=== PATIENT | female | born 1985 | race Caucasian/White ===

== ENCOUNTER 2016-08-16 15:10 | Emergency (ER) | payer MEDICAID ==
[2016-08-16 15:27] VITALS: BP 161/72
== END 2016-08-16 16:49 | disposition left against medical advice (07) ==
LOC: ER 15:10
DX: Z53.21 Procedure and treatment not carried out due to patient leaving prior to being seen by health care provider (principal)

== ENCOUNTER 2016-08-21 08:06 | Emergency (ER) | payer MEDICAID ==
[2016-08-21 08:32] LABS: ABSOLUTE BASOPHILS # (AUTO) 0.1 10^3/uL (0.0-0.2); ABSOLUTE EOSINOPHILS # (AUTO) 0.1 10^3/uL (0.0-0.6); ABSOLUTE LYMPHOCYTES (AUTO) 1.6 10^3/uL (0.5-4.7); ABSOLUTE MONOCYTES (AUTO) 0.5 10^3/uL (0.1-1.4); ABSOLUTE NEUT (AUTO) 4.2 10^3/uL (1.7-8.2); BASOPHILS % (AUTO) 0.8 % (0-2); EOSINOPHILS % (AUTO) 2.3 % (0-6); HEMATOCRIT 42.8 % (36.0-47.0); HGB HCT DIFFERENCE -0.8; LYMPHOCYTES % (AUTO) 24.4 % (13-45); MEAN CORPUSCULAR HEMOGLOBIN 27.5 pg (27.0-33.4); MEAN CORPUSCULAR HGB CONC 32.7 g/dL (32.0-36.0); MEAN CORPUSCULAR VOLUME 84 fl (80-97); MONOCYTES % (AUTO) 7.2 % (3-13); RED BLOOD COUNT 5.09 10^6/uL (3.72-5.28); RED CELL DISTRIBUTION WIDTH 14.9 % (11.5-14.0); SEGMENTED NEUTROPHILS % (AUTO) 65.3 % (42-78); WHITE BLOOD COUNT 6.4 10^3/uL (4.0-10.5)
[2016-08-21 08:46] LABS: ALANINE AMINOTRANSFERASE 27 U/L (9-52); ALBUMIN 4.7 g/dL (3.5-5.0); ALKALINE PHOSPHATASE 64 U/L (38-126); ANION GAP 13 (5-19); ASPARTATE AMINO TRANSFERASE 22 U/L (14-36); BILIRUBIN,DIRECT 0.2 mg/dL (0.0-0.4); BILIRUBIN,TOTAL 0.8 mg/dL (0.2-1.3); BLOOD UREA NITROGEN 13 mg/dL (7-20); CALCIUM 9.3 mg/dL (8.4-10.2); CARBON DIOXIDE 24 mmol/L (22-30); CHLORIDE 105 mmol/L (98-107); CREATININE RESULT 0.76 mg/dL (0.52-1.25); GLUCOSE 90 mg/dL (75-110); LIPASE 103.4 U/L (23-300); POTASSIUM 4.6 mmol/L (3.6-5.0); SODIUM 142.3 mmol/L (137-145); TOTAL PROTEIN 8.2 g/dL (6.3-8.2)
[2016-08-21 08:54] LABS: APPEARANCE,URINE SLIGHTLY-CLOUDY; BILIRUBIN,URINE NEGATIVE (NEGATIVE); GLUCOSE, URINE NEGATIVE (NEGATIVE); KETONES,URINE NEGATIVE (NEGATIVE); LEUKOCYTE ESTERASE,URINE NEGATIVE (NEGATIVE); NITRITE,URINE NEGATIVE (NEGATIVE); PROTEIN,URINE NEGATIVE (NEGATIVE); URINE SPECIFIC GRAVITY 1.019; UROBILINOGEN,URINE NEGATIVE mg/dL (<2.0)
[2016-08-21] MEDS ORDERED: DICYCLOMINE HCL INJ 20 MG/2 ML AMPULE IM ONE (09:16)
--- NOTE | 2016-08-21 09:55 | ER Document Report ---
ED General - General Chief Complaint: Abdominal Pain Stated Complaint: ABDOMINAL PAIN/POSSIBLE BLOOD IN STOOL Time Seen by Provider: 08/21/16 08:29 Mode of Arrival: Ambulatory Information source: Patient Notes: 30-year-old female family history of ulcerative colitis or Crohn's disease presents with complaints of abdominal cramping with bright red blood. Patient denies any fevers or chills, she had pain for 1 week had checked in but left without being seen initially. Patient notes fevers have since resolved. Patient has had one similar episode in the past where it was just blood approximately 2 years ago TRAVEL OUTSIDE OF THE [place] IN LAST 30 DAYS: No - HPI Onset: Last week Onset/Duration: Intermittent, Persistent Quality of pain: Cramping Severity: Mild Pain Level: 1 Associated symptoms: Other Exacerbated by: Denies Relieved by: Denies Similar symptoms previously: Yes Recently seen / treated by doctor: Yes - Related Data Allergies/Adverse Reactions: amoxicillin trihydrate [From Augmentin] Allergy (Severe, Verified 08/21/16 08:12 ) itch,swell,vomit potassium clavulanate [From Augmentin] Allergy (Severe, Verified 08/21/16 08:12) itch,swell,vomit cillins Allergy (Uncoded 08/21/16 08:12) hives/rash Past Medical History - Social History Smoking Status: Current Every Day Smoker Cigarette use (# per day): Yes Chew tobacco use (# tins/day): No Smoking Education Provided: No Frequency of alcohol use: None Drug Abuse: None Family History: Reviewed & Not Pertinent Patient has suicidal ideation: No Patient has homicidal ideation: No - Past Medical History Cardiac Medical History: Reports: Hx Hypertension - on occas/no meds Denies: Hx Coronary Artery Disease, Hx Heart Attack Pulmonary Medical History: Reports: Hx Pneumonia Denies: Hx Asthma, Hx Bronchitis, Hx COPD Neurological Medical History: Denies: Hx Cerebrovascular Accident, Hx Seizures Renal/ Medical History: Denies: Hx Peritoneal Dialysis Musculoskeltal Medical History: Denies Hx Arthritis Psychiatric Medical History: Reports: Hx Attention Deficit Hyperactivity Disorder Past Surgical History: Reports: Hx Section - x4, Hx Cholecystectomy, Hx Tubal Ligation - Immunizations Immunizations up to date: Yes Hx Diphtheria, Pertussis, Tetanus Vaccination: Yes Review of Systems - Review of Systems Notes: REVIEW OF SYSTEMS: CONSTITUTIONAL : Denies fever, chills, or sweats. Denies recent illness. EENT: Denies eye, ear, throat, or mouth pain or symptoms. Denies nasal or sinus congestion or discharge. Denies throat, tongue, or mouth swelling or difficulty swallowing. CARDIOVASCULAR: Denies chest pain. Denies palpitations or racing or irregular heart beat. Denies ankle edema. RESPIRATORY: Denies cough, cold, or chest congestion. Denies shortness of breath, difficulty breathing, or wheezing. GASTROINTESTINAL: admits to abd pain rectal bleeding GENITOURINARY: Denies difficulty urinating, painful urination, burning, frequency, blood in urine, or discharge. FEMALE GENITOURINARY: Denies vaginal bleeding, heavy or abnormal periods, irregular periods. Denies vaginal discharge or odor. MUSCULOSKELETAL: Denies back or neck pain or stiffness. Denies joint pain or swelling. SKIN: Denies rash, lesions or sores. HEMATOLOGIC : Denies easy bruising or bleeding. LYMPHATIC: Denies swollen, enlarged glands. NEUROLOGICAL: Denies confusion or altered mental status. Denies passing out or loss of consciousness. Denies dizziness or lightheadedness. Denies headache. Denies weakness or paralysis or loss of use of either side. Denies problems with gait or speech. Denies sensory loss, numbness, or tingling. Denies seizures. PSYCHIATRIC: Denies anxiety or stress. Denies depression, suicidal ideation, or homicidal ideation. ALL OTHER SYSTEMS REVIEWED AND NEGATIVE. PHYSICAL EXAMINATION: GENERAL: Well-appearing, well-nourished and in no acute distress. HEAD: Atraumatic, normocephalic. EYES: Pupils equal round and reactive to light, extraocular movements intact, conjunctiva are normal. ENT: Nares patent, oropharynx clear without exudates. Moist mucous membranes. NECK: Normal range of motion, supple without lymphadenopathy LUNGS: Breath sounds clear to auscultation bilaterally and equal. No wheezes rales or rhonchi. HEART: Regular rate and rhythm without murmurs ABDOMEN: Soft, nontender, nondistended abdomen. No guarding, no rebound. No masses appreciated. Female : deferred Musculoskeletal: Normal range of motion, no pitting or edema. No cyanosis. NEUROLOGICAL: Cranial nerves grossly intact. Normal speech, normal gait. Normal sensory, motor exams PSYCH: Normal mood, normal affect. SKIN: Warm, Dry, normal turgor, no rashes or lesions noted. Dictation was performed using [employer] voice recognition software Physical Exam - Vital signs Vitals: Temp Pulse Resp BP Pulse Ox 98.4 F 96 14 144/79 H 99 08/21/16 08:12 08/21/16 08:12 08/21/16 08:12 08/21/16 08:12 08/21/16 08:12 Course - Re-evaluation Re-evalutation: 08/21/16 09:54 Rectal examination was performed with primary nurse in the room, Hemoccult was negative. Patient otherwise looks quite benign, vital signs are stable lab work is normal. She will be given GI follow-up to rule out ulcerative colitis/ Crohn's disease given the extensive family history After performing a Medical Screening Examination, I estimate there is LOW risk for ACUTE APPENDICITIS, BOWEL OBSTRUCTION, ACUTE CHOLECYSTITIS, PERFORATED DIVERTICULITIS, INCARCERATED HERNIA, PANCREATITIS, PELVIC INFLAMMATORY DISEASE, PERFORATED ULCER, ECTOPIC , or TUBO-OVARIAN ABSCESS, thus I consider the discharge disposition reasonable. Also, there is no evidence or peritonitis , sepsis, or toxicity. I have reevaluated this patient multiple times and no significant life threatening changes are noted. The patient and I have discussed the diagnosis and risks, and we agree with discharging home with close follow-up with the understanding that symptoms and presentations can change. We also discussed returning to the Emergency Department immediately if new or worsening symptoms occur. We have discussed the symptoms which are most concerning (e.g., bloody stool, fever, changing or worsening pain, vomiting) that necessitate immediate return. - Vital Signs Vital signs: Temp Pulse Resp BP Pulse Ox 98.4 F 96 14 144/79 H 99 08/21/16 08:12 08/21/16 08:12 08/21/16 08:12 08/21/16 08:12 08/21/16 08:12 - Laboratory Result Diagrams: 08/21/16 08:19 08/21/16 08:19 Laboratory results interpreted by me: 08/21/16 08:19 RDW 14.9 H Discharge - Discharge Clinical Impression: Rectal bleeding Abdominal pain Qualifiers: Abdominal location: generalized Qualified Code(s): R10.84 - Generalized abdominal pain Condition: Stable Disposition: HOME, SELF-CARE Instructions: Abdominal Pain ([facility]), Rectal Bleeding, Unclear Cause ([facility]) Prescriptions: Dicyclomine HCl [Bentyl 20 mg Tablet] 20 mg PO QID #40 tablet Referrals: TRISH ANTHONY MD [ACTIVE STAFF] - Follow up tomorrow SIMRAN WADE MD [ACTIVE STAFF] - Follow up tomorrow
[2016-08-21 10:06] VITALS: BP 138/78
== END 2016-08-21 10:00 | disposition home or self-care (01) ==
LOC: ER 08:06
DX: R10.84 Generalized abdominal pain (principal); K62.5 Hemorrhage of anus and rectum; I10 Essential (primary) hypertension; F17.210 Nicotine dependence, cigarettes, uncomplicated; Z83.79 Family history of other diseases of the digestive system; Z88.0 Allergy status to penicillin; Z90.49 Acquired absence of other specified parts of digestive tract
CPT/HCPCS: 99284; 36415; 83690; 85025; 82272; 81025; 80053; 81001; J0500

== ENCOUNTER 2016-10-01 10:14 | Emergency (ER) | payer MEDICAID ==
[2016-10-01] MEDS ORDERED: KETOROLAC TROMETHAMINE 60 MG/2 ML SDV IM ONE (10:56)
--- NOTE | 2016-10-01 11:02 | ER Document Report ---
HPI - HPI Patient complains to provider of: Left ear pain Onset: Other Onset/Duration: Gradual Quality of pain: Throbbing Severity: Moderate Pain Level: 3 Context: Patient states her left ear has been bothering her for several days, and is worse since last night. Denies fever, cold symptoms. Associated Symptoms: Earache Exacerbated by: Other - Opening and closing mouth Relieved by: Denies Similar symptoms previously: Yes Recently seen / treated by doctor: No - ROS ROS below otherwise negative: Yes Systems Reviewed and Negative: Yes All other systems reviewed and negative - CONSTITUTIONAL Constitutional: DENIES: Fever - EENT EENT: REPORTS: Ear Pain - left. DENIES: Sore Throat, Congestion - NEURO Neurology: DENIES: Headache - CARDIOVASCULAR Cardiovascular: DENIES: Chest pain - RESPIRATORY Respiratory: DENIES: Trouble Breathing - GASTROINTESTINAL Gastrointestinal: DENIES: Abdominal Pain - URINARY Urinary: DENIES: Dysuria - REPRODUCTIVE Reproductive: DENIES: : - MUSCULOSKELETAL Musculoskeletal: DENIES: Extremity pain - DERM Skin Color: Normal Past Medical History - General Information source: Patient - Social History Smoking Status: Current Every Day Smoker Cigarette use (# per day): Yes Frequency of alcohol use: None Drug Abuse: None Lives with: Family Family History: Reviewed & Not Pertinent - Past Medical History Cardiac Medical History: Reports: Hx Hypertension - on occas/no meds Pulmonary Medical History: Reports: Hx Pneumonia Psychiatric Medical History: Reports: Hx Attention Deficit Hyperactivity Disorder Past Surgical History: Reports: Hx Abdominal Surgery, Hx Breast Surgery, Hx Section - x4, Hx Cholecystectomy, Hx Tubal Ligation - Immunizations Immunizations up to date: Yes Hx Diphtheria, Pertussis, Tetanus Vaccination: Yes Vertical Provider Document - CONSTITUTIONAL Agree With Documented VS: Yes Exam Limitations: No Limitations General Appearance: WD/WN, Mild Distress - pt tearful - INFECTION CONTROL TRAVEL OUTSIDE OF THE [place] IN LAST 30 DAYS: No - HEENT HEENT: Atraumatic, Normocephalic Notes: Left canal red with mild edema. Pain with movement of left auricle. Left TM red and bulging. No mastoid tenderness. Patient able to fully open mouth without difficulty. Nose, throat, and right ear all normal. - NECK Neck: Normal Inspection, Supple - RESPIRATORY Respiratory: Breath Sounds Normal, No Respiratory Distress O2 Sat by Pulse Oximetry: 100 - CARDIOVASCULAR Cardiovascular: Regular Rate, Regular Rhythm - MUSCULOSKELETAL/EXTREMETIES Musculoskeletal/Extremeties: MAEW - NEURO Level of Consciousness: Awake, Alert, Appropriate - DERM Integumentary: Warm, Dry, No Rash Course - Vital Signs Vital signs: Temp Pulse Resp BP Pulse Ox 98.3 F 101 H 16 142/99 H 100 10/01/16 10:17 10/01/16 10:17 10/01/16 10:17 10/01/16 10:17 10/01/16 10:17 Discharge - Discharge Clinical Impression: Left acute suppurative otitis media Left otitis externa Qualifiers: Otitis externa type: unspecified type Chronicity: acute Qualified Code(s): H60.502 - Unspecified acute noninfective otitis externa, left ear Condition: Good Disposition: HOME, SELF-CARE Instructions: Use of Ear Drops ([facility]), Oral Narcotic Medication ([facility]), Otitis Externa ([facility]) Additional Instructions: finish all antibiotics tylenol or ibuprofen as needed for pain 4 drops to left ear every 12 hrs x 7 days follow up with your doctor next week for recheck return as needed. Prescriptions: Cefdinir [Omnicef 300 mg Capsule] 1 cap PO BID #20 capsule Ciprofloxacin HCl/Dexameth [Ciprodex Otic Suspension 7.5 ml Bottle] 4 drop OS BID #1 bottle Ibuprofen 800 mg PO PRN PRN #30 tablet PRN Reason:
[2016-10-01 11:56] VITALS: BP 141/90
== END 2016-10-01 12:00 | disposition home or self-care (01) ==
LOC: ER 10:14
DX: H66.002 Acute suppurative otitis media without spontaneous rupture of ear drum, left ear (principal); H60.502 Unspecified acute noninfective otitis externa, left ear; H92.02 Otalgia, left ear; F17.210 Nicotine dependence, cigarettes, uncomplicated
CPT/HCPCS: 99282; 96372; J1885

== ENCOUNTER 2017-04-05 07:51 | Emergency (ER) | payer MEDICAID ==
[2017-04-05 07:59] VITALS: BP 146/87
[2017-04-05] MEDS ORDERED: HYDROXYZINE PAMOATE 50 MG CAPSULE PO ONE (08:22)
[2017-04-05] MEDS ORDERED: PREDNISONE 20 MG TABLET PO ONE (08:22)
[2017-04-05] MEDS ORDERED: FAMOTIDINE 20 MG TABLET PO ONE (08:22)
--- NOTE | 2017-04-05 08:28 | ER Document Report ---
ED Skin Rash/Insect Bite/Abscs - General Chief Complaint: Rash Stated Complaint: POSSIBLE ALLERGIC REACTION Time Seen by Provider: 04/05/17 08:13 Notes: 31-year-old female patient to the emergency department chief complaint of rash and itching. Patient states that she had the flu last week. Her doctor started her on doxycycline as well because he was concerned about a pneumonia that could develop. Patient completed therapy of doxycycline approximately 3 days ago. Yesterday developed a rash. Itching to the face arms chest back legs. Of note, patient states that she was in the hospital for 18 days in the past due to allergic reaction which developed into significant hives. Biopsies were performed at that time while she was in the ICU which were nondiagnostic. Patient has numerous medication allergies. Denies any difficulty swallowing. No difficulty breathing. No swelling of the lips or tongue. No fever, chills or sweats. TRAVEL OUTSIDE OF THE [place] IN LAST 30 DAYS: No - HPI Patient complains to provider of: Skin rash/lesion Onset: Yesterday Onset/Duration: Gradual Quality of pain: Burning Severity: Moderate Pain Level: 0 Skin Character: Erythema, Rash, Swelling, Urticarial Skin Temperature: Warm Quality of rash: Itchy, Burning Medication exposure: Other - Doxycycline - Related Data Allergies/Adverse Reactions: amoxicillin trihydrate [From Augmentin] Allergy (Severe, Verified 04/05/17 07:56 ) itch,swell,vomit potassium clavulanate [From Augmentin] Allergy (Severe, Verified 04/05/17 07:56) itch,swell,vomit cillins Allergy (Uncoded 04/05/17 07:56) hives/rash Past Medical History - General Information source: Patient - Social History Smoking Status: Current Every Day Smoker Cigarette use (# per day): Yes Smoking Education Provided: No Frequency of alcohol use: None Drug Abuse: None Lives with: Family Family History: Reviewed & Not Pertinent - Past Medical History Cardiac Medical History: Reports: Hx Hypertension - on occas/no meds Pulmonary Medical History: Reports: Hx Pneumonia Renal/ Medical History: Denies: Hx Peritoneal Dialysis Psychiatric Medical History: Reports: Hx Attention Deficit Hyperactivity Disorder Past Surgical History: Reports: Hx Abdominal Surgery, Hx Breast Surgery, Hx Section - x4, Hx Cholecystectomy, Hx Tubal Ligation - Immunizations Immunizations up to date: Yes Hx Diphtheria, Pertussis, Tetanus Vaccination: Yes Review of Systems - Review of Systems Constitutional: denies: Fever, Malaise, Weakness EENT: denies: Eye pain, Eye discharge, Double vision, Ear pain, Nose congestion , Nose discharge, Difficulty swallowing, Mouth pain, Mouth swelling Cardiovascular: denies: Chest pain, Palpitations, Heart racing Respiratory: denies: Cough, Hurts to breathe, Hemoptysis, Short of breath Gastrointestinal: denies: Abdominal pain, Diarrhea, Nausea Genitourinary: denies: Dysuria, Discharge, Hematuria Female Genitourinary: denies: , Vaginal discharge, Vaginal bleeding Musculoskeletal: denies: Back pain, Gout, Joint pain, Muscle pain, Muscle stiffness, Neck pain, Deformity Skin: See HPI, Change in color, Rash Neurological/Psychological: denies: Confusion, Weakness, Seizure, Numbness Physical Exam - Vital signs Vitals: Temp Pulse Resp BP Pulse Ox 97.8 F 104 H 16 146/87 H 99 04/05/17 07:55 04/05/17 07:55 04/05/17 07:55 04/05/17 07:55 04/05/17 07:55 Interpretation: Tachycardic. No: Tachypneic, Febrile - HEENT Head: Normocephalic Eyes: Normal Conjunctiva: Normal Cornea: Normal Ears: Normal Mouth/Lips: Normal, Other - Tongue is normal Mucous membranes: Normal Pharynx: Normal Neck: Normal - Respiratory Respiratory status: No respiratory distress Chest status: Nontender Breath sounds: Normal Chest palpation: Normal - Cardiovascular Rhythm: Tachycardia Heart sounds: Normal auscultation Murmur: No - Abdominal Inspection: Normal Distension: No distension Bowel sounds: Normal Tenderness: Nontender Organomegaly: No organomegaly - Extremities General upper extremity: Normal inspection, Nontender, Normal color, Normal ROM , Normal temperature General lower extremity: Normal inspection, Nontender, Normal color, Normal ROM , Normal temperature, Normal weight bearing. No: Ricardo's sign - Skin Skin Temperature: Warm Skin Moisture: Dry Skin Color: Other - Patient has urticarial hives on the inner aspect of her right humerus. Has read itchy rash on face and bilateral ears, bilateral arms Course - Re-evaluation Re-evalutation: 04/05/17 08:26 She is experiencing urticarial hives and itching. Will give prednisone, Pepcid , Vistaril at this time. Could be a delayed hypersensitivity reaction from the doxycycline. I have advised her against taking that again. Will continue with prednisone for the approximately 5 days as well as Vistaril and Pepcid twice a day. Patient advised to return if develop any worsening symptoms. Warning signs were given with regards to King-Jimmy syndrome as well as toxic epidermal necrolysis. Patient verbalized understanding of instructions. Will DC after medications given. - Vital Signs Vital signs: Temp Pulse Resp BP Pulse Ox 97.8 F 104 H 16 146/87 H 99 04/05/17 07:55 04/05/17 07:55 04/05/17 07:55 04/05/17 07:55 04/05/17 07:55 Discharge - Discharge Clinical Impression: Urticarial rash Allergic reaction caused by a drug Qualifiers: Encounter type: initial encounter Qualified Code(s): T78.40XA - Allergy, unspecified, initial encounter Condition: Good Disposition: HOME, SELF-CARE Instructions: Acute Urticaria ([facility]), Acute Allergic Reaction ([facility]) Prescriptions: Famotidine [Pepcid 20 mg Tablet] 20 mg PO BID 5 Days #10 tablet Hydroxyzine Pamoate [Vistaril 25 mg Capsule] 25 mg PO TID PRN 7 Days #21 capsule PRN Reason: Itching Prednisone [Deltasone 20 mg Tablet] 3 tab PO DAILY 5 Days tablet
== END 2017-04-05 08:42 | disposition home or self-care (01) ==
LOC: ER 07:51
DX: T78.40XA Allergy, unspecified, initial encounter (principal); L50.9 Urticaria, unspecified; R21 Rash and other nonspecific skin eruption; F17.210 Nicotine dependence, cigarettes, uncomplicated; X58.XXXA Exposure to other specified factors, initial encounter
CPT/HCPCS: 99282; J7512

== ENCOUNTER 2017-05-10 09:37 | Emergency (ER) | payer MEDICAID ==
--- NOTE | 2017-05-10 10:44 | RADIOLOGY REPORT (SQ) ---
EXAM DESCRIPTION: FOOT RIGHT COMPLETE COMPLETED DATE/TIME: 05/10/2017 10:27 am REASON FOR STUDY: stepped on a glass COMPARISON: None. NUMBER OF VIEWS: Three views. TECHNIQUE: AP, lateral and oblique radiographic images acquired of the right foot. LIMITATIONS: None. FINDINGS: MINERALIZATION: Normal. BONES: No acute fracture or dislocation. No worrisome bone lesions. JOINTS: No effusions. SOFT TISSUES: No soft tissue swelling. No foreign body. OTHER: Tiny heel spur IMPRESSION: No radiopaque foreign body. Glass may not be radiopaque. No acute bony changes. Tiny heel spur. TECHNICAL DOCUMENTATION: JOB ID: [id number] [employer]- All Rights Reserved Reading location - IP/workstation name: [email or web address]
[2017-05-10] MEDS ORDERED: IBUPROFEN 600 MG TABLET PO ONE (10:45)
[2017-05-10] MEDS ORDERED: LIDOCAINE 1% INJ-PF (10 MG/ML) 30 ML SDV INJ ONE (10:45)
--- NOTE | 2017-05-10 10:49 | ER Document Report ---
ED Extremity Problem, Lower - General Chief Complaint: Foot Injury Stated Complaint: FOOT INJURY Time Seen by Provider: 05/10/17 10:23 Mode of Arrival: Ambulatory Information source: Patient TRAVEL OUTSIDE OF THE [place] IN LAST 30 DAYS: No - HPI Patient complains to provider of: Injury Location: Foot Occurred: This morning Notes: Patient is here with complaints of right heel pain. She states that she had a bunch of glasses in a bag that was covered by a shirt on the floor. He got up this morning and externally stepped on the bag and a glass broke and a piece of glass went into her right heel. She was able to pull the chunk of glass out of her heel, and believes that the glass was intact. She has pain in the heel at this point. She denies any numbness, tingling, weakness. Bleeding is controlled. Last tetanus was over 2 years ago. She denies any nausea, vomiting , diarrhea. No other injuries at this time. No other complaints at this time. Pain is worse with touching the area and standing, better when she is off the foot. - Related Data Allergies/Adverse Reactions: amoxicillin trihydrate [From Augmentin] Allergy (Severe, Verified 04/05/17 07:56 ) itch,swell,vomit potassium clavulanate [From Augmentin] Allergy (Severe, Verified 04/05/17 07:56) itch,swell,vomit cillins Allergy (Uncoded 04/05/17 07:56) hives/rash Past Medical History - Social History Smoking Status: Current Every Day Smoker Chew tobacco use (# tins/day): No Frequency of alcohol use: None Drug Abuse: None Family History: Reviewed & Not Pertinent Patient has suicidal ideation: No Patient has homicidal ideation: No - Past Medical History Cardiac Medical History: Reports: Hx Hypertension - on occas/no meds Pulmonary Medical History: Reports: Hx Pneumonia Renal/ Medical History: Denies: Hx Peritoneal Dialysis Psychiatric Medical History: Reports: Hx Attention Deficit Hyperactivity Disorder Past Surgical History: Reports: Hx Abdominal Surgery, Hx Breast Surgery, Hx Section - x4, Hx Cholecystectomy, Hx Tubal Ligation - Immunizations Immunizations up to date: Yes Hx Diphtheria, Pertussis, Tetanus Vaccination: Yes Review of Systems - Review of Systems -: Yes All other systems reviewed and negative Physical Exam - Vital signs Vitals: Temp Pulse Resp BP Pulse Ox 98.2 F 88 18 141/86 H 99 05/10/17 09:45 05/10/17 09:45 05/10/17 09:45 05/10/17 09:45 05/10/17 09:45 - Notes Notes: GENERAL: alert, cooperative, nontoxic, no distress. HEAD: normocephalic, atraumatic EYES: conjunctiva pink without discharge, no external redness or swelling. EARS: no external swelling, no external redness NOSE: atraumatic, no external swelling MOUTH/THROAT: mucous membranes moist and pink NECK: soft, supple, full range of motion, no meningismus. CHEST: no distress, lungs clear and equal throughout. No wheezing, rales, rhonchi. CARDIAC: regular rate and rhythm, no murmur, normal capillary refill, normal pulses. BACK: full range of motion, no CVA tenderness. EXTREMITIES: full range of motion of all extremities. No redness, no swelling. 2 cm V-shaped laceration to the right heel. No active bleeding. Mild tenderness to palpation. No foreign body identified. Normal cap refill and sensation to the toes. NEURO: alert and oriented 3, no focal deficits, full range of motion of all extremities. PYSCH: appropriate mood, affect. Patient is cooperative. SKIN: pink, warm, dry, no rash. Course - Re-evaluation Re-evalutation: 05/10/17 11:36 Patient is nontoxic appearing with stable vitals. The patient is here with complaints of right foot laceration when she externally stepped on broken glass. She states there was a chunk of glass in her foot that she was able to pull out. Her tetanus is up-to-date. X-ray shows no fractures or obvious foreign bodies. I explained to the patient that glass does not always show up on x-ray and there is still the possibility that she could have a small piece of glass in her foot. The wound was probed with forceps and I did not feel any foreign bodies and I did not see any foreign bodies on exam. Laceration was copiously irrigated and cleaned and sutured. She will be discharged home with a prescription for Voltaren. Follow-up in 10-12 days for suture removal. Follow-up sooner for increasing pain, fever, redness, drainage, any further concerns. The patient's emergency department workup and current diagnosis were explained to the patient and or family. Follow-up instructions were provided. Medications if prescribed were discussed. Instructions for when to return to the emergency department including specific worrisome symptoms were discussed with the patient and/or family. The patient is noted to have elevated blood pressure during today's emergency department visit. The patient was informed of this finding. The patient was instructed that this may be related to pre-hypertension and requires further evaluation with a primary care provider. The patient has no hypertensive symptoms at this time. - Vital Signs Vital signs: Temp Pulse Resp BP Pulse Ox 98.2 F 88 18 141/86 H 99 05/10/17 09:45 05/10/17 09:45 05/10/17 09:45 05/10/17 09:45 05/10/17 09:45 - Diagnostic Test Radiology reviewed: Image reviewed, Reports reviewed - X-ray negative for fracture or obvious foreign body. Procedures - Laceration/Wound Repair Right heel Wound length (cm): 2 Wound's Depth, Shape: Superficial, Other - V-shaped Laceration pre-procedure: Sterile PPE donned, Sterile drapes applied, Shur- Clens applied Anesthetic type: 1% Lidocaine Wound explored: Clean, No foreign body removed Irrigated w/ Saline (mLs): 50 Wound Debrided: Minimal Wound Repaired With: Sutures Suture Size/Type: 4:0, Ethilon Number of Sutures: 3 Layer Closure?: No Post-procedure wound care: Sterile dressing applied Post-procedure NV exam normal: Yes Complications: No Discharge - Discharge Clinical Impression: Laceration of right foot Qualifiers: Encounter type: initial encounter Qualified Code(s): S91.311A - Laceration without foreign body, right foot, initial encounter Condition: Stable Disposition: HOME, SELF-CARE Instructions: Antibiotic Ointment Protection ([facility]), Laceration Care ([facility]) Additional Instructions: Clean wound twice a day with soap and water. Follow-up with your doctor in 10- 12 days for suture removal. Follow-up sooner for increasing pain, fever, redness, drainage, any further concerns. Your blood pressure was elevated during today's visit. Have this rechecked with your doctor. Prescriptions: Diclofenac Sodium [Voltaren 50 Mg Tablet.] 50 mg PO BID #20 tablet. Forms: Elevated Blood Pressure, Smoking Cessation Education, Return to Work Referrals: [facility] [Provider Group] - Follow up as needed
[2017-05-10 11:45] VITALS: BP 120/85
== END 2017-05-10 11:49 | disposition home or self-care (01) ==
LOC: ER 09:37
DX: S91.311A Laceration without foreign body, right foot, initial encounter (principal); W25.XXXA Contact with sharp glass, initial encounter; I10 Essential (primary) hypertension; Z88.0 Allergy status to penicillin
CPT/HCPCS: 99283; 73630; 12001; J3490 ×2

== ENCOUNTER 2017-07-22 09:06 | Emergency (ER) | payer MEDICAID ==
[2017-07-22] MEDS ORDERED: DEXAMETHASONE SOD PHOS INJ 10 MG/1 ML VIAL IM ONE (09:30)
[2017-07-22] MEDS ORDERED: KETOROLAC TROMETHAMINE 60 MG/2 ML SDV IM ONE (09:30)
--- NOTE | 2017-07-22 09:34 | ER Document Report ---
ED Extremity Problem, Upper - General Chief Complaint: Arm Pain Stated Complaint: RIGHT ELBOW PAIN Time Seen by Provider: 07/22/17 09:21 Mode of Arrival: Ambulatory Information source: Patient Notes: 31-year-old female presents to ED for complaint of right elbow pain times a month and half. She states she was helping someone lift tires and twins at the time the next day it was worse and it is progressively gotten worse until over the last couple days she can barely lift and move her elbow. 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 TRAVEL OUTSIDE OF THE [place] IN LAST 30 DAYS: No - HPI Patient complains to provider of: Right, Elbow Onset: Other - 1-1/2 months Recent injury: No Quality of pain: Sharp Severity of pain: Moderate Pain Level: 3 Context: Other - Lifting tires Associated symptoms: None Exacerbated by: Movement, Exertion Relieved by: Nothing Similar symptoms previously: Yes Recently seen / treated by doctor: No - Related Data Allergies/Adverse Reactions: amoxicillin trihydrate [From Augmentin] Allergy (Severe, Verified 07/22/17 09:07 ) itch,swell,vomit potassium clavulanate [From Augmentin] Allergy (Severe, Verified 07/22/17 09:07) itch,swell,vomit cillins Allergy (Uncoded 05/10/17 11:50) hives/rash Past Medical History - General Information source: Patient - Social History Smoking Status: Former Smoker Cigarette use (# per day): No Chew tobacco use (# tins/day): No Smoking Education Provided: No Frequency of alcohol use: None Drug Abuse: None Lives with: Spouse/Significant other Family History: Reviewed & Not Pertinent Patient has suicidal ideation: No Patient has homicidal ideation: No - Past Medical History Cardiac Medical History: Reports: Hx Hypertension - on occas/no meds Pulmonary Medical History: Reports: Hx Pneumonia EENT Medical History: Reports: None Neurological Medical History: Reports: None Endocrine Medical History: Reports: None Renal/ Medical History: Reports: Hx Ovarian Cysts Malignancy Medical History: Reports: None GI Medical History: Reports: None Musculoskeltal Medical History: Reports Hx Musculoskeletal Deformity, Reports Hx Musculoskeletal Trauma Skin Medical History: Reports None Psychiatric Medical History: Reports: Hx Anxiety, Hx Attention Deficit Hyperactivity Disorder Traumatic Medical History: Reports: Hx Fractures - Tib-fib, bilateral scaphoid Surgical Hx: Negative Past Surgical History: Reports: Hx Abdominal Surgery - Tummy tuck, Hx Breast Surgery - Augmentation, Hx Section - x4, Hx Cholecystectomy, Hx Myringotomy, Hx Tubal Ligation - Immunizations Immunizations up to date: Yes Hx Diphtheria, Pertussis, Tetanus Vaccination: Yes Review of Systems - Review of Systems Constitutional: No symptoms reported EENT: No symptoms reported Cardiovascular: No symptoms reported Respiratory: No symptoms reported Gastrointestinal: No symptoms reported Genitourinary: No symptoms reported Female Genitourinary: No symptoms reported Musculoskeletal: Other - Right elbow pain Skin: No symptoms reported Hematologic/Lymphatic: No symptoms reported Neurological/Psychological: No symptoms reported -: Yes All other systems reviewed and negative Physical Exam - Vital signs Vitals: Temp Pulse Resp BP Pulse Ox 98.6 F 80 16 139/84 H 99 07/22/17 09:14 07/22/17 09:14 07/22/17 09:14 07/22/17 09:14 07/22/17 09:14 Interpretation: Normal - General General appearance: Appears well, Alert - HEENT Head: Normocephalic, Atraumatic Eyes: Normal Pupils: PERRL - Respiratory Respiratory status: No respiratory distress Chest status: Nontender Breath sounds: Normal Chest palpation: Normal - Cardiovascular Rhythm: Regular Heart sounds: Normal auscultation Murmur: No - Abdominal Inspection: Normal Distension: No distension Bowel sounds: Normal Tenderness: Nontender Organomegaly: No organomegaly - Back Back: Normal, Nontender - Extremities General upper extremity: Normal inspection, Normal color, Normal temperature General lower extremity: Normal inspection, Nontender, Normal color, Normal ROM , Normal temperature, Normal weight bearing. No: Ricardo's sign Elbow: Limited ROM - Due to pain - Neurological Neuro grossly intact: Yes Cognition: Normal Orientation: AAOx4 Ok Coma Scale Eye Opening: Spontaneous Ok Coma Scale Verbal: Oriented [place] Coma Scale Motor: Obeys Commands [place] Coma Scale Total: 15 Speech: Normal Motor strength normal: LUE, RUE, LLE, RLE Sensory: Normal - Psychological Associated symptoms: Normal affect, Normal mood - Skin Skin Temperature: Warm Skin Moisture: Dry Skin Color: Normal Course - Vital Signs Vital signs: Temp Pulse Resp BP Pulse Ox 98.2 F 87 18 140/90 H 99 07/22/17 10:24 07/22/17 10:24 07/22/17 10:24 07/22/17 10:24 07/22/17 10:24 - Diagnostic Test Radiology reviewed: Image reviewed, Reports reviewed Discharge - Discharge Clinical Impression: Right elbow pain HTN (hypertension) Qualifiers: Hypertension type: unspecified Qualified Code(s): I10 - Essential (primary) hypertension Condition: Stable Disposition: HOME, SELF-CARE Instructions: Forearm Exercise Program ([facility]) Additional Instructions: Arthralgia Arthralgia is pain in the joints. We use the word arthralgia to describe joint pain where there's no history of injury, no known joint disease, and the joints are normal to examination. Arthralgia can be a symptom of an acute illness, such as influenza, hepatitis, or serum sickness. Sometimes the joint pain comes before any other symptoms. Arthralgia can also be an early symptom of joint disease, such as rheumatoid arthritis or lupus. If arthralgia is accompanied by an acute illness that explains the joint pain, such as mononucleosis, no further testing needs to be done. When there's no clear reason for the pain, tests may be done to see if there's an inflammatory disease of the joints. The usual treatment is anti-inflammatory medication, such as ibuprofen. Joint aches can be soothed with a heating pad or hot compress. If joints remain painful more than a few days, you'll need testing and followup. Return if a joint becomes swollen, red, or severely painful. Toradol Injection You have been given an injection of ketorolac tromethamine (Toradol). This is an excellent, safe drug for pain control. It also has potent antiinflammatory action. You should have significant pain relief within about one hour. Toradol is not addicting and is non-sedating. It does not interfere with driving or work. Call or return if you develop itching, hives, shortness of breath, or rash. STEROID MEDICATION: You have been given an injection of medicine of the cortisone/steroid class. This medication is used to control inflammation or allergy. It is often continued as a pill for a short period of time, until the acute process subsides. There are usually no side effects from short-term use of cortisone-like medications. Some persons feel an increased sense of well-being and are not sleepy at bedtime. Long-term use of cortisone medications is best avoided, unless required for a severe condition. If your condition does not remit, or relapses after the course of corticosteroid medication, you should consult your physician. Warm Packs After approximately two days, apply gentle heat (such as a heating pad or hot water bottle) for about 20 to 30 minutes about every two hours -- at least four times daily. Warmth and elevation will help you make a more rapid recovery , and will ease the pain considerably. Do not use HOT heat, and never apply heat for longer than 30 minutes. The continuous heat can invisibly damage skin and muscles -- even when no burn is seen on the surface. Damaged muscles can make you MORE sore. FOLLOW-UP CARE: If you have been referred to a physician for follow-up care, call the physician s office for an appointment as you were instructed or within the next two days. If you experience worsening or a significant change in your symptoms, notify the physician immediately or return to the Emergency Department at any time for re-evaluation. Prescriptions: Ibuprofen 600 mg PO Q8HP PRN #20 tablet PRN Reason: Forms: Elevated Blood Pressure Referrals: LUCIANO JUAREZ MD [Primary Care Provider] - Follow up as needed GUILLERMINA ODONNELL DO [ACTIVE STAFF] - Follow up as needed
--- NOTE | 2017-07-22 10:07 | RADIOLOGY REPORT (SQ) ---
EXAM DESCRIPTION: ELBOW RIGHT OVER 2 VIEWS COMPLETED DATE/TIME: 07/22/2017 9:52 am REASON FOR STUDY: pain increasing to right elbow COMPARISON: None. NUMBER OF VIEWS: Four views. TECHNIQUE: AP, lateral, and both oblique radiographic images acquired of the right elbow. LIMITATIONS: None. FINDINGS: MINERALIZATION: Normal. BONES: No acute fracture or dislocation. No worrisome bone lesions. JOINT: No effusion. SOFT TISSUES: No soft tissue swelling. No foreign body. OTHER: No other significant finding. IMPRESSION: NEGATIVE STUDY OF THE RIGHT ELBOW. NO RADIOGRAPHIC EVIDENCE OF ACUTE INJURY. TECHNICAL DOCUMENTATION: JOB ID: [id number] [employer] All Rights Reserved Reading location - IP/workstation name: [email or web address]
[2017-07-22 10:25] VITALS: BP 140/90
== END 2017-07-22 10:28 | disposition home or self-care (01) ==
LOC: ER 09:06
DX: M25.521 Pain in right elbow (principal); I10 Essential (primary) hypertension; Z87.891 Personal history of nicotine dependence; Z90.49 Acquired absence of other specified parts of digestive tract; Z98.51 Tubal ligation status
CPT/HCPCS: 99283; 96372; 73080; J1885; J1100

== ENCOUNTER → 2017-08-09 | Outpatient (CLI) | payer MEDICAID ==
[2017-08-09 12:52] LABS: ABSOLUTE BASOPHILS # (AUTO) 0.1 10^3/uL (0.0-0.2); ABSOLUTE EOSINOPHILS # (AUTO) 0.1 10^3/uL (0.0-0.6); ABSOLUTE LYMPHOCYTES (AUTO) 1.5 10^3/uL (0.5-4.7); ABSOLUTE MONOCYTES (AUTO) 0.3 10^3/uL (0.1-1.4); ABSOLUTE NEUT (AUTO) 2.6 10^3/uL (1.7-8.2); BASOPHILS % (AUTO) 1.3 % (0-2); EOSINOPHILS % (AUTO) 1.7 % (0-6); HEMATOCRIT 38.8 % (36.0-47.0); HEMOGLOBIN 13.2 g/dL (12.0-15.5); LYMPHOCYTES % (AUTO) 33.1 % (13-45); MEAN CORPUSCULAR HEMOGLOBIN 28.4 pg (27.0-33.4); MEAN CORPUSCULAR VOLUME 84 fl (80-97); PLATELET COUNT 299 10^3/uL (150-450); RED BLOOD COUNT 4.64 10^6/uL (3.72-5.28); RED CELL DISTRIBUTION WIDTH 13.8 % (11.5-14.0); SEGMENTED NEUTROPHILS % (AUTO) 56.9 % (42-78); TOTAL CELLS COUNTED % (AUTO) 100 %; WHITE BLOOD COUNT 4.6 10^3/uL (4.0-10.5)
[2017-08-09 13:12] LABS: ALANINE AMINOTRANSFERASE 87 U/L (9-52); ALBUMIN 4.3 g/dL (3.5-5.0); ALKALINE PHOSPHATASE 70 U/L (38-126); ANION GAP 13 (5-19); ASPARTATE AMINO TRANSFERASE 65 U/L (14-36); BILIRUBIN,DIRECT 0.3 mg/dL (0.0-0.4); BILIRUBIN,TOTAL 0.7 mg/dL (0.2-1.3); BLOOD UREA NITROGEN 12 mg/dL (7-20); CALCIUM 9.6 mg/dL (8.4-10.2); CARBON DIOXIDE 26 mmol/L (22-30); CHLORIDE 106 mmol/L (98-107); CHOLESTEROL 179.48 mg/dL (0-200); GLUCOSE 86 mg/dL (75-110); POTASSIUM 4.6 mmol/L (3.6-5.0); SODIUM 144.8 mmol/L (137-145); TOTAL PROTEIN 7.3 g/dL (6.3-8.2); TRIGLYCERIDES 125 mg/dL (<150)
[2017-08-09 13:23] LABS: DIRECT LDL 111 mg/dL (<100)
== END ==
LOC: OD 11:55
PROVIDERS: ATTEND Family Medicine Geriatric Medicine
DX: E66.9 Obesity, unspecified (principal); Z79.899 Other long term (current) drug therapy
CPT/HCPCS: 36415; 80053; 80061; 84443; 85025

== ENCOUNTER 2017-12-31 11:28 | Emergency (ER) | payer MEDICAID ==
--- NOTE | 2017-12-31 12:15 | ER Document Report ---
HPI - HPI Patient complains to provider of: dental pain Time Seen by Provider: 12/31/17 11:52 Onset: Yesterday Onset/Duration: Sudden Quality of pain: Achy Severity: Moderate Pain Level: 3 Context: Presents emergency department with complaints of extreme dental pain that started yesterday morning. She complains of pain to #7 and 8. She reports she was eating a burger and all the sudden her front teeth started hurting. She reports her teeth are sensitive to hot and cold now. She does report she has a dentist Dr. Weaver that she will follow-up with on Tuesday. Denies fever vomiting diarrhea. Associated Symptoms: None Exacerbated by: Other - heat/cold Relieved by: Denies Similar symptoms previously: No Recently seen / treated by doctor: No - REPRODUCTIVE Reproductive: DENIES: : Past Medical History - General Information source: Patient Last Menstrual Period: 12/08/17 - Social History Smoking Status: Current Every Day Smoker Cigarette use (# per day): Yes Frequency of alcohol use: None Drug Abuse: None Occupation: sonic Lives with: Family Family History: Reviewed & Not Pertinent Patient has suicidal ideation: No Patient has homicidal ideation: No - Past Medical History Cardiac Medical History: Reports: Hx Hypertension - on occas/no meds Pulmonary Medical History: Reports: Hx Pneumonia Renal/ Medical History: Reports: Hx Ovarian Cysts. Denies: Hx Peritoneal Dialysis Musculoskeletal Medical History: Reports Hx Musculoskeletal Deformity, Reports Hx Musculoskeletal Trauma Psychiatric Medical History: Reports: Hx Anxiety, Hx Attention Deficit Hyperactivity Disorder Traumatic Medical History: Reports: Hx Fractures - Tib-fib, bilateral scaphoid Past Surgical History: Reports: Hx Abdominal Surgery - Tummy tuck, Hx Breast Surgery - Augmentation, Hx Section - x4, Hx Cholecystectomy, Hx Myringotomy, Hx Tubal Ligation - Immunizations Immunizations up to date: Yes Hx Diphtheria, Pertussis, Tetanus Vaccination: Yes Vertical Provider Document - CONSTITUTIONAL Agree With Documented VS: Yes Exam Limitations: No Limitations General Appearance: WD/WN, No Apparent Distress - INFECTION CONTROL TRAVEL OUTSIDE OF THE [place] IN LAST 30 DAYS: No - HEENT HEENT: Atraumatic, Normocephalic. negative: Conjuctival Injection, Pharyngeal Erythema Mouth Diagram: 1 - c/o pain,no erythema swelling or discharge opens mouth wide clear voice no ludwigs - NECK Neck: Normal Inspection, Supple. negative: Lymphadenopathy-Left, Lymphadenopathy-Right - RESPIRATORY Respiratory: No Respiratory Distress - CARDIOVASCULAR Cardiovascular: Regular Rate - MUSCULOSKELETAL/EXTREMETIES Musculoskeletal/Extremeties: MAEW, FROM - NEURO Level of Consciousness: Awake, Alert, Appropriate Motor/Sensory: No Motor Deficit - DERM Integumentary: Warm, Dry Course - Re-evaluation Re-evalutation: 12/31/17 Patient was instructed on medications. Patient has dentist, Dr. Weaver and will follow-up with him on Tuesday. Dictation of this chart was performed using voice recognition software; therefore, there may be some unintended grammatical errors. - Vital Signs Vital signs: 12/31/17 12:13 151/97, 107, 99 temp, 100%, 20 rr Discharge - Discharge Clinical Impression: Pain, dental Condition: Stable Disposition: HOME, SELF-CARE Instructions: Clindamycin ([facility]), Oral Narcotic Medication ([facility]), Toothache ([facility] ) Additional Instructions: *You have been evaluated for dental pain *Take medications as prescribed *Follow up with Dr Weaver Tuesday *Return to ED for worsening condition, changes, needs Monitor your blood pressure. Your blood pressure was elevated today. This may be because you were anxious, in pain or because you need medication. It is important to follow up with your primary care provider for full evaluation. Prescriptions: Clindamycin HCl 300 mg PO TID #30 capsule Hydrocodone/Acetaminophen [[place] 5-325 mg Tablet] 1 tab PO Q6H #15 tablet Forms: Elevated Blood Pressure Referrals: STEFANY FLYNN MD [Primary Care Provider] - Follow up in 3-5 days
[2017-12-31 12:41] VITALS: BP 143/93
== END 2017-12-31 12:43 | disposition home or self-care (01) ==
LOC: ER 11:28
DX: K08.9 Disorder of teeth and supporting structures, unspecified (principal); F17.210 Nicotine dependence, cigarettes, uncomplicated; I10 Essential (primary) hypertension; Z90.49 Acquired absence of other specified parts of digestive tract; Z98.51 Tubal ligation status
CPT/HCPCS: 99282

== ENCOUNTER → 2018-01-23 | Outpatient (CLI) | payer MEDICAID ==
--- NOTE | 2018-01-23 13:42 | RADIOLOGY REPORT (SQ) ---
EXAM DESCRIPTION: CHEST PA/LATERAL COMPLETED DATE/TIME: 01/23/2018 12:55 pm REASON FOR STUDY: WHEEZING,COUGH COMPARISON: None. EXAM PARAMETERS: NUMBER OF VIEWS: two views TECHNIQUE: Digital Frontal and Lateral radiographic views of the chest acquired. RADIATION DOSE: NA LIMITATIONS: none FINDINGS: LUNGS AND PLEURA: No opacities, masses or pneumothorax. No pleural effusion. MEDIASTINUM AND HILAR STRUCTURES: No masses or contour abnormalities. HEART AND VASCULAR STRUCTURES: Heart normal size. No evidence for failure. BONES: No acute findings. HARDWARE: Artifact from bilateral breast implants OTHER: No other significant finding. IMPRESSION: NO SIGNIFICANT RADIOGRAPHIC FINDING IN THE CHEST. TECHNICAL DOCUMENTATION: JOB ID: [id number] [employer]- All Rights Reserved Reading location - IP/workstation name: [email or web address]
[2018-01-23 14:02] LABS: ALANINE AMINOTRANSFERASE 32 U/L (9-52); ASPARTATE AMINO TRANSFERASE 36 U/L (14-36)
== END ==
LOC: OD 12:34
PROVIDERS: ATTEND Family Medicine Geriatric Medicine
DX: R74.8 Abnormal levels of other serum enzymes (principal); R05 Cough
CPT/HCPCS: 36415; 71046; 84450; 84460

== ENCOUNTER 2018-02-05 15:40 | Emergency (ER) | payer MEDICAID ==
[2018-02-05] MEDS ORDERED: DOCUSATE SODIUM 100 MG CAPSULE RT_EAR ONE ×2 (16:56→16:57)
[2018-02-05] MEDS ORDERED: OXYCODONE-ACETAMINOPHEN 5-325 MG TABLET PO ONE (17:12)
[2018-02-05] MEDS ORDERED: AZITHROMYCIN 250 MG TABLET PO ONE (18:04)
[2018-02-05] MEDS ORDERED: CIPROFLOXACIN HCL/DEXAMETH OTIC DROP 7.5 ML AS ONE (18:05)
--- NOTE | 2018-02-05 18:05 | ER Document Report ---
HPI - HPI Time Seen by Provider: 02/05/18 16:36 Pain Level: 5 Notes: Patient is an otherwise healthy 32-year-old female who presents with chief complaint of right ear pain. She reports that is been intermittent over the last 3 weeks. She reports brownish black drainage over the last couple of days. She states that she is currently on antibiotic eardrops. - CONSTITUTIONAL Constitutional: DENIES: Fever, Chills - EENT EENT: REPORTS: Ear Pain - right - REPRODUCTIVE Reproductive: DENIES: : Past Medical History - General Information source: Patient - Social History Smoking Status: Current Every Day Smoker Chew tobacco use (# tins/day): No Frequency of alcohol use: None Drug Abuse: None Family History: Reviewed & Not Pertinent Patient has suicidal ideation: No Patient has homicidal ideation: No - Past Medical History Cardiac Medical History: Reports: Hx Hypertension - on occas/no meds Pulmonary Medical History: Reports: Hx Pneumonia Renal/ Medical History: Reports: Hx Ovarian Cysts. Denies: Hx Peritoneal Dialysis Musculoskeletal Medical History: Reports Hx Musculoskeletal Deformity, Reports Hx Musculoskeletal Trauma Psychiatric Medical History: Reports: Hx Anxiety, Hx Attention Deficit Hyperactivity Disorder Traumatic Medical History: Reports: Hx Fractures - Tib-fib, bilateral scaphoid Past Surgical History: Reports: Hx Abdominal Surgery - Tummy tuck, Hx Breast Surgery - Augmentation, Hx Section - x4, Hx Cholecystectomy, Hx Myringotomy, Hx Tubal Ligation - Immunizations Immunizations up to date: Yes Hx Diphtheria, Pertussis, Tetanus Vaccination: Yes Vertical Provider Document - CONSTITUTIONAL Notes: PHYSICAL EXAMINATION: GENERAL: Well-appearing, well-nourished and in no acute distress. HEAD: Atraumatic, normocephalic. EYES: Pupils equal round extraocular movements intact, conjunctiva are normal. ENT: Nares patent, left TM pinkish pearly hill. Right TM not visualized, right canal erythematous, edematous with copious amounts of brownish blackish debris. NECK: Normal range of motion LUNGS: No respiratory distress Musculoskeletal: Normal range of motion NEUROLOGICAL: Normal speech, normal gait. PSYCH: Normal mood, normal affect. SKIN: Warm, Dry, normal turgor, no rashes or lesions noted. - INFECTION CONTROL TRAVEL OUTSIDE OF THE [place] IN LAST 30 DAYS: No Course - Re-evaluation Re-evalutation: Right ear was irrigated and large amount of wax that was brownish black in color was obtained. Patient will be placed on Ciprodex drops for otitis externa. Patient discharged home in stable condition. - Vital Signs Vital signs: Temp Pulse Resp BP Pulse Ox 98.9 F 103 H 14 150/80 H 99 02/05/18 15:44 02/05/18 15:44 02/05/18 15:44 02/05/18 15:44 02/05/18 15:44 Discharge - Discharge Clinical Impression: Serous otitis media Qualifiers: Chronicity: acute Laterality: right Recurrence: not specified as recurrent Qualified Code(s): H65.01 - Acute serous otitis media, right ear Otitis externa Qualifiers: Otitis externa type: unspecified type Chronicity: acute Laterality: right Qualified Code(s): H60.501 - Unspecified acute noninfective otitis externa, right ear Condition: Stable Disposition: HOME, SELF-CARE Additional Instructions: OTITIS EXTERNA: You have otitis externa -- an infection of the outer ear canal. This can be very painful. It's sometimes called "swimmer's ear," because it often occurs after prolonged water exposure. Many things, such as earwax and dirt in the ear, can contribute to it. The usual treatment is antibiotic/antiinflammatory ear drops. Occasionally, a wick will be placed in the ear to draw in the medicine. If the infection is severe, an oral antibiotic may be prescribed. Pain medication is often needed. Avoid getting water in the ear. Outer ear infections often take longer to heal than you might expect. Some tenderness and ache in the ear may persist for about two weeks. See your physician if you fail to improve as expected. Call the doctor at once if you develop fever, increasing swelling (particularly if it makes your ear "poke out"), severe headache, stiff neck, or decreased hearing. OTITIS MEDIA: You have a middle ear infection (otitis media). This is usually a complication of a cold or sore throat. The middle ear cavity becomes filled with infection. Pressure and stretching of the ear drum cause pain. Antibiotics are required. A 10 day course is usually prescribed. A deconge stant may be recommended if you have a "runny nose." You may need anesthetic drops or other pain medication. A follow-up exam may be recommended to make sure the infection has completely cleared. If the ear begins to drain, it means the ear drum has ruptured. This will usually heal spontaneously. However, it means you should keep the ear dry until re-examined by a doctor. Call the physician or return for examination at once if there is severe headache, stiff neck, confusion, increasing fever, or dizziness. You should improve significantly within two days. If you're not better, call the doctor. AZITHROMYCIN: Azithromycin (Zithromax) is a broad spectrum antibiotic in the same class as erythromycin. It can treat a variety of bacterial infections, but is most frequently used for respiratory infections. Azithromycin is extremely long-lasting. It accumulates in body tissues and continues to kill bacteria for many days. In order to improve absorption, Azithromycin should be taken at least one hour before or two hours after a meal. It does not have the same strong tendency to upset the stomach as erythromycin and is usually very well tolerated. Patients who have had a rash or other true allergic reactions to erythromycin should not take this medication. Call if you develop gastrointestinal distress, severe diarrhea, rash, hives, itching, or shortness of breath. USE OF EAR DROPS: Your ear drops won't do much good if they don't get all the way in. To help the ear drops penetrate all the way to the ear drum, use the following techniqu e. If you encounter problems of any kind, notify the physician. (1) Lay your head sideways on a pillow. (2) Place the dropper tip just barely inside the ear canal, almost touching the bottom side of the canal. The liquid is tolerated better on the bottom of the canal. (3) Squeeze out the appropriate amount of medicine, and remove the dropper. (4) Grab the back of the ear (just behind the ear canal) between your index finger and thumb. (5) Tug up, then let the ear drop back. Repeat several times. This pumps the medicine down. (6) Wait five minutes, then place a cotton ball in the ear canal to catch and hold the medicine. CIPROFLOXACIN: You have been given an antibacterial agent, ciprofloxacin (Cipro). This medicine is not related to the penicillins, sulfas, cephalosporins, or tetracyclines. It is often given to patients who are allergic to these drugs. It has been chosen for you either because other drugs are not appropriate, or because of the nature of your problem. Cipro should not be taken with antacids, as these can decrease its effectiveness. It can be taken without regard to meals. CIPRO SHOULD NOT BE TAKEN BY CHILDREN, NURSING WOMEN, OR WOMEN. Although Cipro is usually well-tolerated, common side effects can include nausea and diarrhea. Contact your doctor if you experience any unusual symptoms while on this medication, such as joint pain or swelling, shortness of breath, wheezing, faintness, or hives. ORAL NARCOTIC MEDICATION: You have been given a prescription for pain control. This medication is a narcotic. It's best taken with food, as nausea can result if taken on an empty stomach. Don't operate machinery or drive within six hours of taking this medication. Do not combine this medicine with alcohol, or with any medication which can cause sedation (such as cold tablets or sleeping pills) unless you get permission from the physician. Narcotics tend to cause constipation. If possible, drink plenty of fluids and eat a diet high in fiber and fruits. Please be aware that prescription narcotics also have the potential for abuse. People become addicted to these medications because of the general sense of wellbeing that they induce. This feeling along with a significant reduction in tension, anxiety, and aggression provides a stimulating seductive quality to these drugs. Once your pain is under control, we encourage you to discard your unused narcotics. FOLLOW-UP CARE: If you have been referred to a physician for follow-up care, call the physicians office for an appointment as you were instructed or within the next two days. If you experience worsening or a significant change in your symptoms, notify the physician immediately or return to the Emergency Department at any time for re-evaluation. Prescriptions: Azithromycin [Zithromax] 250 mg PO DAILY #4 tablet Hydrocodone Bit/Acetaminophen [Hydrocodon-Acetaminophen 5-325] 1 each PO Q4H #10 tablet Referrals: STEFANY FLYNN MD [Primary Care Provider] - Follow up as needed SID VERNON DO [ASSOCIATE] - Follow up as needed
[2018-02-05 18:23] VITALS: BP 149/85
== END 2018-02-05 18:23 | disposition home or self-care (01) ==
LOC: ER 15:40
DX: H65.01 Acute serous otitis media, right ear (principal); H60.501 Unspecified acute noninfective otitis externa, right ear; F17.200 Nicotine dependence, unspecified, uncomplicated; I10 Essential (primary) hypertension; Z90.49 Acquired absence of other specified parts of digestive tract; Z98.51 Tubal ligation status
CPT/HCPCS: 99283; Q0144; J3490 ×2

== ENCOUNTER 2018-02-18 15:45 | Emergency (ER) | payer MEDICAID ==
[2018-02-18] MEDS ORDERED: LIDOCAINE 2% VISCOUS SOLN 20 ML UDCUP PO ONE (16:31)
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
[2018-02-18 16:51] VITALS: BP 133/83
== END 2018-02-18 16:51 | disposition home or self-care (01) ==
LOC: ER 15:45
DX: H92.01 Otalgia, right ear (principal); I10 Essential (primary) hypertension; F17.210 Nicotine dependence, cigarettes, uncomplicated; Z88.1 Allergy status to other antibiotic agents
CPT/HCPCS: 99282; J3490

== ENCOUNTER 2018-06-08 06:01 | Emergency (ER) | payer MEDICAID ==
[2018-06-08] MEDS ORDERED: ONDANSETRON HCL INJ/PF 4 MG/2 ML SDV IV ONE (07:30)
[2018-06-08] MEDS ORDERED: PROCHLORPERAZINE EDISYLATE INJ 10 MG/2 ML VIAL IV ONE (07:30)
[2018-06-08] MEDS ORDERED: RINGERS SOLUTION,LACTATED 1,000 ML IV ONE (07:30)
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
[2018-06-08 08:05] VITALS: BP 135/76
== END 2018-06-08 08:06 | disposition home or self-care (01) ==
LOC: ER 06:01
DX: R51 Headache (principal); I10 Essential (primary) hypertension; F17.200 Nicotine dependence, unspecified, uncomplicated; Z88.0 Allergy status to penicillin
CPT/HCPCS: 99283; 96374; 96375; 81025; J0780; J2405; J7120; 96361

== ENCOUNTER 2018-06-17 11:01 | Emergency (ER) | payer MEDICAID ==
[2018-06-17 11:08] VITALS: BP 140/92
[2018-06-17] MEDS ORDERED: TETRACAINE HCL 0.5% OPH SOLN 4 ML OD ONE (11:14)
[2018-06-17] MEDS ORDERED: POLYMYXIN B SULFATE/TMP OPH SOLN (10 ML/ER DISP) OD PRN (12:01)
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
== END 2018-06-17 12:18 | disposition home or self-care (01) ==
LOC: ER 11:01
DX: S05.01XA Injury of conjunctiva and corneal abrasion without foreign body, right eye, initial encounter (principal); H57.11 Ocular pain, right eye; W55.03XA Scratched by cat, initial encounter; Y93.K9 Activity, other involving animal care; I10 Essential (primary) hypertension
CPT/HCPCS: 99283; J3490

== ENCOUNTER 2018-07-31 09:04 | Emergency (ER) | payer MEDICAID ==
[2018-07-31] MEDS ORDERED: IBUPROFEN 800 MG TABLET PO ONE (10:04)
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
--- NOTE | 2018-07-31 10:32 | RADIOLOGY REPORT (SQ) ---
EXAM DESCRIPTION: ANKLE LEFT COMPLETE COMPLETED DATE/TIME: 07/31/2018 9:33 am REASON FOR STUDY: left ankle pain after fall, unable to bear weight COMPARISON: None. NUMBER OF VIEWS: Three views. TECHNIQUE: AP, lateral, and oblique radiographic images acquired of the left ankle. LIMITATIONS: None. FINDINGS: MINERALIZATION: Normal. BONES: There is a compression plate on the distal fibula with an additional small plate distally and with a small plate on the tibia. No acute fracture or dislocation. JOINTS: No effusions. SOFT TISSUES: No soft tissue swelling. No foreign body. OTHER: No other significant finding. IMPRESSION: Hardware. No acute finding. TECHNICAL DOCUMENTATION: JOB ID: [id number] [employer]- All Rights Reserved Reading location - IP/workstation name: [email or web address]
[2018-07-31 11:02] VITALS: BP 139/88
== END 2018-07-31 11:02 | disposition home or self-care (01) ==
LOC: ER 09:04
DX: M25.572 Pain in left ankle and joints of left foot (principal); F17.200 Nicotine dependence, unspecified, uncomplicated; I10 Essential (primary) hypertension; F41.9 Anxiety disorder, unspecified; F90.9 Attention-deficit hyperactivity disorder, unspecified type; Z90.49 Acquired absence of other specified parts of digestive tract; Z98.51 Tubal ligation status
CPT/HCPCS: 99283; 73610; L1902; J3490

== ENCOUNTER → 2018-10-31 | Outpatient (CLI) | payer MEDICAID ==
--- NOTE | 2018-10-31 13:43 | RADIOLOGY REPORT (SQ) ---
EXAM DESCRIPTION: NM 3 PHASE BONE SCAN COMPLETED DATE/TIME: 10/31/2018 1:29 pm REASON FOR STUDY: M79.662 PAIN IN LEFT LOWER LEG, M79.661 PAIN IN RIGHT LOWER LEG M79.662 PAIN IN L EFT LOWER LEG M79.661 PAIN IN RIGHT LOWER LEG COMPARISON: Conventional radiographs dated 07/31/2018 RADIONUCLIDE AND DOSE: 21.7 millicuries Tc99m MDP. The route of agent administration: Intravenous. ADDITIONAL DRUGS AND DOSES: None. TECHNIQUE: Following injection of the radiopharmaceutical, serial blood flow images acquired. Equil ibrium blood pool images then acquired. Routine delayed images at 3 hour acquired of the areas of cl inical concern with additional focused images as needed. AREA OF INTEREST: Left lower leg LIMITATIONS: None. FINDINGS: VASCULAR FLOW IMAGES: No asymmetry or focal areas of hyperemia. BLOOD POOL IMAGES: No asymmetry or focal areas of soft-tissue hyper-perfusion. BONES: Increased uptake in the distal left fibula consistent with prior trauma. Conventional radiogr aphs demonstrate orthopedic hardware in place. KIDNEYS: Symmetric excretion without obstruction. OTHER: No other significant finding. IMPRESSION: Increased uptake in the distal left fibula on delayed images only. Findings are consist ent with prior trauma. COMMENT: Quality measure 147: Current bone scan is compared with any available plain radiographs, p rior bone scans, and CT/MRI. TECHNICAL DOCUMENTATION: JOB ID: [id number] [employer]- All Rights Reserved Reading location - IP/workstation name: [email or web address]
== END ==
LOC: RAD 09:53
PROVIDERS: ATTEND Family Medicine
DX: M79.661 Pain in right lower leg (principal); M79.662 Pain in left lower leg
CPT/HCPCS: 78315; A9561; Q9969

== ENCOUNTER 2019-01-26 03:05 | Emergency (ER) | payer MEDICAID ==
[2019-01-26 03:58] LABS: APPEARANCE,URINE CLOUDY; BILIRUBIN,URINE NEGATIVE (NEGATIVE); COLOR,URINE YELLOW; GLUCOSE, URINE NEGATIVE (NEGATIVE); KETONES,URINE NEGATIVE (NEGATIVE); LEUKOCYTE ESTERASE,URINE TRACE (NEGATIVE); NITRITE,URINE NEGATIVE (NEGATIVE); PROTEIN,URINE NEGATIVE (NEGATIVE); UROBILINOGEN,URINE NEGATIVE mg/dL (<2.0)
[2019-01-26] MEDS ORDERED: ONDANSETRON HCL INJ/PF 4 MG/2 ML SDV IV ONE (04:16)
[2019-01-26] MEDS ORDERED: DICYCLOMINE HCL INJ 20 MG/2 ML AMPULE IM ONE (04:16)
[2019-01-26] MEDS ORDERED: NORMAL SALINE 1000 ML 1,000 ML IV ONE (04:17)
[2019-01-26 04:36] LABS: ABSOLUTE BASOPHILS # (AUTO) 0.1 10^3/uL (0.0-0.2); ABSOLUTE EOSINOPHILS # (AUTO) 0.1 10^3/uL (0.0-0.6); ABSOLUTE LYMPHOCYTES (AUTO) 1.2 10^3/uL (0.5-4.7); ABSOLUTE MONOCYTES (AUTO) 0.4 10^3/uL (0.1-1.4); ABSOLUTE NEUT (AUTO) 3.9 10^3/uL (1.7-8.2); BASOPHILS % (AUTO) 0.9 % (0-2); EOSINOPHILS % (AUTO) 2.6 % (0-6); HEMATOCRIT 41.4 % (36.0-47.0); HEMOGLOBIN 13.9 g/dL (12.0-15.5); LYMPHOCYTES % (AUTO) 21.2 % (13-45); MEAN CORPUSCULAR HEMOGLOBIN 27.6 pg (27.0-33.4); MEAN CORPUSCULAR HGB CONC 33.7 g/dL (32.0-36.0); MEAN CORPUSCULAR VOLUME 82 fl (80-97); MONOCYTES % (AUTO) 6.4 % (3-13); PLATELET COUNT 302 10^3/uL (150-450); RED BLOOD COUNT 5.05 10^6/uL (3.72-5.28); RED CELL DISTRIBUTION WIDTH 14.9 % (11.5-14.0); SEGMENTED NEUTROPHILS % (AUTO) 68.9 % (42-78); TOTAL CELLS COUNTED % (AUTO) 100 %; WHITE BLOOD COUNT 5.6 10^3/uL (4.0-10.5)
--- NOTE | 2019-01-26 04:39 | ER Document Report ---
ED General - General Chief Complaint: Abdominal Pain Stated Complaint: STOMACH PAIN Time Seen by Provider: 01/26/19 04:08 Primary Care Provider: STEFANY FLYNN MD [Primary Care Provider] - Follow up in 3-5 days Notes: 33-year-old female presents with mid abdominal pain that woke her up from sleep at 2 AM this morning. Patient had associated nausea/vomiting. Patient states that abdominal pain comes in "waves". Patient denies fever, urinary symptoms, diarrhea/constipation. Patient denies ever having abdominal pain like this previously. TRAVEL OUTSIDE OF THE [place] IN LAST 30 DAYS: No - Related Data Allergies/Adverse Reactions: amoxicillin trihydrate [From Augmentin] Allergy (Severe, Verified 06/17/18 11:02) itch,swell,vomit potassium clavulanate [From Augmentin] Allergy (Severe, Verified 06/17/18 11:02) itch,swell,vomit cillins Allergy (Uncoded 06/17/18 11:02) hives/rash Past Medical History - Social History Smoking Status: Current Every Day Smoker Family History: Reviewed & Not Pertinent Patient has suicidal ideation: No Patient has homicidal ideation: No - Past Medical History Cardiac Medical History: Reports: Hx Hypertension - on occas/no meds Pulmonary Medical History: Reports: Hx Pneumonia Renal/ Medical History: Reports: Hx Ovarian Cysts. Denies: Hx Peritoneal Dialysis Musculoskeletal Medical History: Reports Hx Musculoskeletal Deformity, Reports Hx Musculoskeletal Trauma Psychiatric Medical History: Reports: Hx Anxiety, Hx Attention Deficit Hyperactivity Disorder Traumatic Medical History: Reports: Hx Fractures - Tib-fib, bilateral scaphoid Past Surgical History: Reports: Hx Abdominal Surgery - Tummy tuck, Hx Breast Surgery - Augmentation, Hx Section - x4, Hx Cholecystectomy, Hx Myringotomy, Hx Orthopedic Surgery, Hx Tubal Ligation - Immunizations Immunizations up to date: Yes Hx Diphtheria, Pertussis, Tetanus Vaccination: Yes Review of Systems - Review of Systems Notes: Constitutional: Negative for fever. HENT: Negative for sore throat. Eyes: Negative for visual changes. Cardiovascular: Negative for chest pain. Respiratory: Negative for shortness of breath. Gastrointestinal: Positive for abdominal pain,, nausea, vomiting. Negative for diarrhea. Genitourinary: Negative for dysuria. Musculoskeletal: Negative for back pain. Skin: Negative for rash. Neurological: Negative for headaches, weakness or numbness. 10 point ROS negative except as marked above and in HPI. Physical Exam - Vital signs Vitals: Temp Pulse Resp BP Pulse Ox 97.8 F 107 H 20 154/106 H 100 01/26/19 03:10 01/26/19 03:10 01/26/19 03:10 01/26/19 03:10 01/26/19 03:10 - Notes Notes: GENERAL: Well-appearing, well-nourished and in no acute distress. HEAD: Atraumatic, normocephalic. EYES: Extraocular movements intact, sclera anicteric, conjunctiva are normal. NECK: Normal range of motion, supple without lymphadenopathy or JVD. LUNGS: Breath sounds clear to auscultation bilaterally and equal. No wheezes rales or rhonchi. HEART: Regular rate and rhythm without murmurs, rubs or gallops. ABDOMEN: Soft, tenderness to periumbilic and epigastric areas. Patient has mild guarding. No rebound. No masses appreciated. EXTREMITIES: Normal range of motion, no pitting or edema. No clubbing or cyanosis. NEUROLOGICAL: Cranial nerves II through XII grossly intact. Normal speech, normal gait. PSYCH: Normal mood, normal affect. SKIN: Warm, Dry, normal turgor, no rashes or lesions noted. Course - Re-evaluation Re-evalutation: 01/26/19 04:38 33-year-old female presents with mid abdominal pain with nausea/vomiting. Nontoxic, well-appearing. Abdomen is soft with tenderness to epigastric and periumbilical areas with mild guarding. Lab work and CT abdomen/pelvis with IV contrast ordered. 01/26/19 06:50 PO challenge passed. Discussed CT abdomen/pelvis results with pt and given copy of results. 01/26/19 06:59 Pt feeling better after having BM after dose of Maalox. Pt given strict return precautions. Pt given close follow up with PCP. Pt voices unde rstanding and agrees with plan of care. - Vital Signs Vital signs: Temp Pulse Resp BP Pulse Ox 97.8 F 107 H 20 154/106 H 100 01/26/19 03:10 01/26/19 03:10 01/26/19 03:10 01/26/19 03:10 01/26/19 03:10 - Laboratory Result Diagrams: 01/26/19 04:21 01/26/19 04:21 Laboratory results interpreted by me: 01/26/19 01/26/19 01/26/19 03:40 04:21 04:21 RDW 14.9 H Glucose 133 H Urine Blood LARGE H Ur Leukocyte Esterase TRACE H Discharge - Discharge Clinical Impression: Abdominal pain Qualifiers: Abdominal location: periumbilical Qualified Code(s): R10.33 - Periumbilical pain Nausea & vomiting Qualifiers: Vomiting type: unspecified Vomiting Intractability: unspecified Qualified Code(s): R11.2 - Nausea with vomiting, unspecified Condition: Stable Disposition: HOME, SELF-CARE Instructions: Abdominal Pain ([facility]) Additional Instructions: Please take zofran as prescribed for vomiting. Please take Bentyl as prescribed for abdominal pain. Take phenergan for nausea once able to tolerate pills. Follow up with your primary care doctor in 3-5 days. Return to ER for any worsening symptoms, including fever, worsening abdominal pain, vomiting not controlled by medication, urinary symptoms, diarrhea/constipation, or any other symptoms that are concerning to you. Prescriptions: Ondansetron [Zofran Odt 4 mg Tablet] 4 mg PO Q4HP PRN #30 tab.rapdis PRN Reason: Dicyclomine HCl [Bentyl 20 mg Tablet] 20 mg PO QID #40 tablet Promethazine HCl [Phenergan 25 mg Tablet] 25 - 50 mg PO ASDIR PRN #12 tablet PRN Reason: Forms: Parent Work Note Referrals: STEFANY FLYNN MD [Primary Care Provider] - Follow up in 3-5 days
[2019-01-26 04:55] LABS: ALBUMIN 4.6 g/dL (3.5-5.0); ALKALINE PHOSPHATASE 76 U/L (38-126); ANION GAP 12 (5-19); ASPARTATE AMINO TRANSFERASE 34 U/L (14-36); BILIRUBIN,DIRECT 0.1 mg/dL (0.0-0.4); BILIRUBIN,TOTAL 0.8 mg/dL (0.2-1.3); BLOOD UREA NITROGEN 13 mg/dL (7-20); CALCIUM 9.5 mg/dL (8.4-10.2); CARBON DIOXIDE 27 mmol/L (22-30); CHLORIDE 103 mmol/L (98-107); GLUCOSE 133 mg/dL (75-110); POTASSIUM 3.9 mmol/L (3.6-5.0)
--- NOTE | 2019-01-26 06:05 | RADIOLOGY REPORT (SQ) ---
EXAM: CT abdomen and pelvis with IV contrast CLINICAL DATA: 33-year-old female with mid abdominal pain and nausea and vomiting TECHNICAL DATA: Axial CT imaging of the abdomen and pelvis was performed following the administration of intravenous contrast.. Sagittal and coronal reconstructed images were then performed. The CT study is performed according to ALARA (as low as reasonably achievable) or ALARA/IMAGE GENTLY, with automatic adjustment of mA and/or kV according to patient size. Performed on: 01/26/2019 at 5:09 AM. Comparison: Prior CT abdomen and pelvis performed on 06/30/2015 FINDINGS: Lung bases: The lung bases are clear. There is minimal bibasilar atelectasis and/or fibrosis. Liver: The liver is mildly enlarged and measures 20 cm in craniocaudal dimension. No focal hepatic abnormalities are identified. Liver attenuation is within normal limits. Spleen:The spleen is normal is size, configuration and attenuation. Gallbladder and bile duct: The gallbladder is surgically absent. There is no biliary ductal dilatation. Pancreas: The pancreas is grossly normal in size and configuration. Adrenal Glands:The adrenal glands are normal in size and configuration. Kidneys:The kidneys are normal in size and configuration. There is no evidence of hydronephrosis. There is no evidence of nephrolithiasis. No definite solid or cystic renal mass lesions are identified. Stomach:The stomach is grossly normal. There is no definite hiatal hernia. Bowel:The bowel gas pattern is non specific and non obstructive. There is moderate fecal residue scattered throughout the colon. There is questionable mild nonspecific colonic wall thickening along the proximal transverse colon. Appendix: There is no CT evidence of acute appendicitis. Free air:There is no evidence of free air. Free fluid: There is no evidence of free fluid. Vasculature: The aorta is normal in caliber and contour. The inferior vena cava is grossly unremarkable. Lymphadenopathy: No pathologic lymphadenopathy is identified. Bladder: The bladder is incompletely distended on this examination. Reproductive: The uterus is grossly within normal limits. Again demonstrated are tubal ligation clips in the left anterior hemipelvis. Bones: No acute osseous abnormalities are identified. Soft tissues: No focal soft tissue abnormalities are identified. IMPRESSION: 1. No evidence of acute intra-abdominal or intrapelvic pathology. There is moderate fecal residue scattered throughout the colon. There is questionable mild nonspecific colonic wall thickening along the proximal transverse colon. 2. Mild hepatomegaly. 3. Remote cholecystectomy.
[2019-01-26] MEDS ORDERED: MAG HYDROX/AL HYDROX/SIMETH SUSP 30 ML UDCUP PO ONE (06:31)
[2019-01-26 07:08] VITALS: BP 142/79
== END 2019-01-26 07:08 | disposition home or self-care (01) ==
LOC: ER 03:05
DX: R10.33 Periumbilical pain (principal); R11.2 Nausea with vomiting, unspecified; F17.200 Nicotine dependence, unspecified, uncomplicated; I10 Essential (primary) hypertension; Z88.0 Allergy status to penicillin; Z90.49 Acquired absence of other specified parts of digestive tract
CPT/HCPCS: 99284; 96372; 96361; 96374; 36415; 83690; 85025; 81025; 80053; 81001; 74177; J0500; J3490; J2405; J7030

== ENCOUNTER 2019-07-03 07:29 | Emergency (ER) | payer OTHER, MEDICAID ==
[2019-07-03 07:36] VITALS: BP 147/93
--- NOTE | 2019-07-03 08:20 | ER Document Report ---
HPI - HPI Patient complains to provider of: Finger injury Time Seen by Provider: 07/03/19 08:09 Onset: Yesterday Onset/Duration: Sudden Quality of pain: Sharp Pain Level: 2 Context: Patient states that the women flew a metal door that closed on her right second finger. Patient is right-hand dominant. Patient with tenderness to the tip of the right finger. Exacerbated by: Movement Relieved by: Denies Similar symptoms previously: No Recently seen / treated by doctor: No - ROS ROS below otherwise negative: Yes Systems Reviewed and Negative: Yes All other systems reviewed and negative - NEURO Neurology: DENIES: Weakness - GASTROINTESTINAL Gastrointestinal: DENIES: Nausea - REPRODUCTIVE Reproductive: DENIES: : - MUSCULOSKELETAL Musculoskeletal: REPORTS: Extremity pain - DERM Skin Color: Normal Skin Problems: None Past Medical History - General Information source: Patient - Social History Smoking Status: Current Every Day Smoker Frequency of alcohol use: None Drug Abuse: None Occupation: [employer] Lives with: Family Family History: Reviewed & Not Pertinent - Past Medical History Cardiac Medical History: Reports: Hx Hypertension - on occas/no meds Pulmonary Medical History: Reports: Hx Pneumonia Renal/ Medical History: Reports: Hx Ovarian Cysts. Denies: Hx Peritoneal Dialysis Musculoskeletal Medical History: Reports Hx Musculoskeletal Deformity, Reports Hx Musculoskeletal Trauma Psychiatric Medical History: Reports: Hx Anxiety, Hx Attention Deficit Hyperactivity Disorder Traumatic Medical History: Reports: Hx Fractures - Tib-fib, bilateral scaphoid Past Surgical History: Reports: Hx Abdominal Surgery - Tummy tuck, Hx Breast Surgery - Augmentation, Hx Section - x4, Hx Cholecystectomy, Hx Myringotomy, Hx Orthopedic Surgery, Hx Tubal Ligation - Immunizations Immunizations up to date: Yes Hx Diphtheria, Pertussis, Tetanus Vaccination: Yes Vertical Provider Document - CONSTITUTIONAL Agree With Documented VS: Yes Exam Limitations: No Limitations General Appearance: WD/WN, No Apparent Distress - INFECTION CONTROL TRAVEL OUTSIDE OF THE [place] IN LAST 30 DAYS: No - HEENT HEENT: Atraumatic, Normocephalic - NECK Neck: Normal Inspection - RESPIRATORY Respiratory: Breath Sounds Normal, No Respiratory Distress - CARDIOVASCULAR Cardiovascular: Regular Rate, Regular Rhythm Pulses: Normal: Radial - MUSCULOSKELETAL/EXTREMETIES Musculoskeletal/Extremeties: MAEW, Tender - Tenderness to the distal phalanx of the right second finger, 1+ edema, no subungual hematoma, no tendon deficit - NEURO Level of Consciousness: Awake, Alert, Appropriate Motor/Sensory: No Motor Deficit, No Sensory Deficit - DERM Integumentary: Warm, Dry Course - Vital Signs Vital signs: Temp Pulse Resp BP Pulse Ox 98.6 F 114 H 18 147/93 H 99 07/03/19 07:34 07/03/19 07:34 07/03/19 07:34 07/03/19 07:34 07/03/19 07:34 - Diagnostic Test Radiology reviewed: Image reviewed, Reports reviewed Procedures - Immobilization Right Finger 2nd digit Pre-Proc Neuro Vasc Exam: Normal Immobilizer type: Finger splint (Static) Performed by: PCT Post-Proc Neuro Vasc Exam: Normal Alignment checked and good: Yes Discharge - Discharge Clinical Impression: Crush injury, Finger pain, right Condition: Stable Disposition: HOME, SELF-CARE Instructions: Crush Injury ([facility]), Use of Vdro-Cgh-Jdkoceh Ibuprofen ([facility]) Additional Instructions: Return immediately for any new or worsening symptoms Followup with your primary care provider, call tomorrow to make a followup appointment Wear splint for the next 4 to 5 days and then remove. Follow-up with orthopedics for any persistent pain or problems Referrals: STEFANY FLYNN MD [Primary Care Provider] - Follow up as needed [facility] [Provider Group] - Follow up as needed
--- NOTE | 2019-07-03 08:34 | RADIOLOGY REPORT (SQ) ---
EXAM DESCRIPTION: FINGER RIGHT IMAGES COMPLETED DATE/TIME: 07/03/2019 8:04 am REASON FOR STUDY: TIP OF RIGHT INDEX FINGER PINCHED IN A DOOR COMPARISON: None. NUMBER OF VIEWS: Three views. TECHNIQUE: AP, lateral, and oblique images acquired of the right second finger. LIMITATIONS: None. FINDINGS: MINERALIZATION: Normal. BONES: No acute fracture or dislocation. No worrisome bone lesions. SOFT TISSUES: Mild soft tissue swelling about the distal 2nd digit. No radiopaque foreign body. OTHER: No other significant finding. IMPRESSION: No acute bony abnormality. No radiopaque foreign body. COMMENT: SITE OF TRAUMA/COMPLAINT MARKED/STAMP COMPLETED: YES. TECHNICAL DOCUMENTATION: JOB ID: [id number] [employer]- All Rights Reserved Reading location - IP/workstation name: [email or web address]
[2019-07-03] MEDS ORDERED: HYDROCODONE/ACETAMINOPHEN 5-325 MG (6 TAB/ER DISP) PO PRN (08:45)
== END 2019-07-03 09:01 | disposition home or self-care (01) ==
LOC: ER 07:29
PROC: 2W3JX1Z Immobilization of Right Finger using Splint (ICD-10-PCS; principal; 2019-07-03)
DX: S69.91XA Unspecified injury of right wrist, hand and finger(s), initial encounter (principal); M79.644 Pain in right finger(s); W22.8XXA Striking against or struck by other objects, initial encounter; F17.200 Nicotine dependence, unspecified, uncomplicated; I10 Essential (primary) hypertension
CPT/HCPCS: 99283

== ENCOUNTER 2019-08-30 07:43 | Emergency (ER) | payer MEDICAID ==
[2019-08-30 07:51] VITALS: BP 139/96
[2019-08-30] MEDS ORDERED: ACETAMINOPHEN 325 MG TABLET PO ONE (08:48)
--- NOTE | 2019-08-30 09:24 | ER Document Report ---
ED ENT - General Chief Complaint: Ear Pain Stated Complaint: EAR PAIN Time Seen by Provider: 08/30/19 08:53 Primary Care Provider: STEFANY FLYNN MD [Primary Care Provider] - Follow up as needed Mode of Arrival: Ambulatory Information source: Patient Notes: 33-year-old female with no previous medical problems presents to the emergency room complaining of bilateral ear pain for the past 3 days. Started after recent swimming. States she had a fever last night of 101.3. Has been taking Tylenol and ibuprofen with minimal relief. Last dose at 3 AM. Denies chance of . No recent travel. No COVID-19 exposure. TRAVEL OUTSIDE OF THE [place] IN LAST 30 DAYS: No - Related Data Allergies/Adverse Reactions: amoxicillin trihydrate [From Augmentin] Allergy (Severe, Verified 06/17/18 11:02) itch,swell,vomit potassium clavulanate [From Augmentin] Allergy (Severe, Verified 06/17/18 11:02) itch,swell,vomit Penicillins Allergy (Verified 08/30/19 07:52) cillins Allergy (Uncoded 06/17/18 11:02) hives/rash Past Medical History - General Information source: Patient - Social History Smoking Status: Current Every Day Smoker Frequency of alcohol use: Occasional Drug Abuse: None Family History: Reviewed & Not Pertinent - Past Medical History Cardiac Medical History: Reports: Hx Hypertension - on occas/no meds Pulmonary Medical History: Reports: Hx Pneumonia Renal/ Medical History: Reports: Hx Ovarian Cysts. Denies: Hx Peritoneal Dialysis Musculoskeletal Medical History: Reports Hx Musculoskeletal Deformity, Reports Hx Musculoskeletal Trauma Psychiatric Medical History: Reports: Hx Anxiety, Hx Attention Deficit Hyperactivity Disorder Traumatic Medical History: Reports: Hx Fractures - Tib-fib, bilateral scaphoid Past Surgical History: Reports: Hx Abdominal Surgery - Tummy tuck, Hx Breast Surgery - Augmentation, Hx Section - x4, Hx Cholecystectomy, Hx Myringotomy, Hx Orthopedic Surgery, Hx Tubal Ligation - Immunizations Immunizations up to date: Yes Hx Diphtheria, Pertussis, Tetanus Vaccination: Yes Review of Systems - Review of Systems Constitutional: Fever EENT: Ear pain Cardiovascular: No symptoms reported Respiratory: No symptoms reported Female Genitourinary: No symptoms reported Musculoskeletal: No symptoms reported Skin: No symptoms reported Neurological/Psychological: No symptoms reported -: Yes All other systems reviewed and negative Physical Exam - Vital signs Vitals: Temp Pulse Resp BP Pulse Ox 98.3 F 103 H 16 139/96 H 99 08/30/19 07:50 08/30/19 07:50 08/30/19 07:50 08/30/19 07:50 08/30/19 07:50 - General General appearance: Appears well, Alert In distress: Moderate - HEENT Head: Normocephalic, Atraumatic Conjunctiva: Normal Extraocular movements intact: Yes Pupils: PERRL Ears: Normal External canal: Swollen - Lateral outer ear canals with erythema and swelling. Tympanic membrane: Bulging - Bilateral tympanic membranes are erythematous with bulging. No perforation noted bilaterally., Injected Sinus: Normal Nasal: Normal Mouth/Lips: Normal Mucous membranes: Normal Pharynx: Normal Neck: Normal. No: Lymphadenopathy - Respiratory Respiratory status: No respiratory distress Chest status: Nontender Breath sounds: Normal Chest palpation: Normal - Cardiovascular Rhythm: Tachycardia Heart sounds: Normal auscultation Murmur: No Friction rub: No Gallop: None auscultated - Neurological Neuro grossly intact: Yes Cognition: Normal Orientation: AAOx4 [place] Coma Scale Eye Opening: Spontaneous [place] Coma Scale Verbal: Oriented [place] Coma Scale Motor: Obeys Commands [place] Coma Scale Total: 15 Speech: Normal Motor strength normal: LUE, RUE, LLE, RLE Sensory: Normal - Skin Skin Temperature: Warm Skin Moisture: Dry Skin Color: Normal Course - Re-evaluation Re-evalutation: 08/30/19 09:25 Reviewed diagnosis with patient. Counseled to use eardrops and take oral antibiotics as prescribed. Check with primary care physician if not improving in 2 to 3 days. Continue with Tylenol and or Motrin as needed for pain. No swimming x1 week. Patient was given strict return to the emergency room guidelines. Return for any new or worsening symptoms. All questions were answered. Patient verbalized understanding and agrees with plan of care. - Vital Signs Vital signs: Temp Pulse Resp BP Pulse Ox 98.3 F 103 H 16 139/96 H 99 08/30/19 07:50 08/30/19 07:50 08/30/19 07:50 08/30/19 07:50 08/30/19 07:50 Discharge - Discharge Clinical Impression: Bilateral otitis media Qualifiers: Otitis media type: unspecified Qualified Code(s): H66.93 - Otitis media, unspecified, bilateral Bilateral otitis externa Qualifiers: Otitis externa type: swimmer's ear Chronicity: acute Qualified Code(s): H60.333 - Swimmer's ear, bilateral Condition: Stable Disposition: HOME, SELF-CARE Instructions: Otitis Externa ([facility]), Use of Ear Drops ([facility]), Otitis Media ([facility]) Additional Instructions: Use eardrops as prescribed. Take antibiotics as prescribed. Tylenol and/or Motrin as needed for pain. Recheck with primary care physician if not improving in 2 to 3 days. No swimming x1 week. Return to the emergency room for any new or worsening symptoms. Prescriptions: Neomy Sulf/Polymyx B Sulf/Hc [Cortisporin Otic Susp] 4 drop BTH_EAR QID 7 Days #1 bottle Azithromycin [Zithromax 250 mg Tablet] 250 mg PO ASDIR PRN #6 tablet PRN Reason: Forms: Return to Work Referrals: STEFANY FLYNN MD [Primary Care Provider] - Follow up as needed
== END 2019-08-30 09:46 | disposition home or self-care (01) ==
LOC: ER 07:43
DX: H66.93 Otitis media, unspecified, bilateral (principal); H60.333 Swimmer's ear, bilateral; H92.03 Otalgia, bilateral; R50.9 Fever, unspecified; F17.200 Nicotine dependence, unspecified, uncomplicated; Z88.0 Allergy status to penicillin
CPT/HCPCS: 99282; J3490

== ENCOUNTER 2019-09-11 14:15 | Emergency (ER) | payer MEDICAID ==
[2019-09-11] MEDS ORDERED: NORMAL SALINE 1000 ML 1,000 ML IV ONE (15:29)
--- NOTE | 2019-09-11 15:30 | ER Document Report ---
ED Medical Screen (RME) - General Stated Complaint: SURGICAL SITE CHECK/POSSIBLE INFECTION Time Seen by Provider: 09/11/19 15:23 Primary Care Provider: STEFANY FLYNN MD [Primary Care Provider] - Follow up as needed Notes: Patient is a 33-year-old female who presents to the emergency department with a chief complaint of surgical site pain. She had a reversal of her tubal ligation on September 04 in [place]. Patient states that she had her follow-up appointment with her primary care provider here yesterday. Patient states that this morning she ended up having some bleeding and a small amount of purulent drainage from the site. States that the area is tender. Exam: Purulent drainage coming from right side of incision site. Tenderness noted in her incision site. I have greeted and performed a rapid initial assessment of this patient. A comprehensive ED assessment and evaluation of the patient, analysis of test results and completion of medical decision making process will be conducted by an additional ED providers. TRAVEL OUTSIDE OF THE [place] IN LAST 30 DAYS: No - Related Data Allergies/Adverse Reactions: amoxicillin trihydrate [From Augmentin] Allergy (Severe, Verified 09/11/19 15:24) itch,swell,vomit potassium clavulanate [From Augmentin] Allergy (Severe, Verified 09/11/19 15:24) itch,swell,vomit Penicillins Allergy (Verified 09/11/19 15:24) cillins Allergy (Uncoded 09/11/19 15:24) hives/rash Past Medical History - Past Medical History Cardiac Medical History: Reports: Hx Hypertension - on occas/no meds Pulmonary Medical History: Reports: Hx Pneumonia Renal/ Medical History: Reports: Hx Ovarian Cysts. Denies: Hx Peritoneal Dialysis Musculoskeltal Medical History: Reports Hx Musculoskeletal Deformity, Reports Hx Musculoskeletal Trauma Psychiatric Medical History: Reports: Hx Anxiety, Hx Attention Deficit Hyperactivity Disorder Traumatic Medical History: Reports: Hx Fractures - Tib-fib, bilateral scaphoid Past Surgical History: Reports: Hx Abdominal Surgery - Tummy tuck, Hx Breast Surgery - Augmentation, Hx Section - x4, Hx Cholecystectomy, Hx Myringotomy, Hx Orthopedic Surgery, Hx Tubal Ligation - Immunizations Immunizations up to date: Yes Hx Diphtheria, Pertussis, Tetanus Vaccination: Yes Physical Exam - Vital signs Vitals: Temp Pulse Resp BP Pulse Ox 99.7 F 93 18 156/90 H 99 07/28/20 14:21 09/11/19 14:21 09/11/19 14:21 09/11/19 14:21 09/11/19 14:21 Course - Vital Signs Vital signs: Temp Pulse Resp BP Pulse Ox 99.7 F 93 18 156/90 H 99 09/11/19 14:21 09/11/19 14:21 09/11/19 14:21 09/11/19 14:21 09/11/19 14:21 Doctor's Discharge - Discharge Referrals: STEFANY FLYNN MD [Primary Care Provider] - Follow up as needed
[2019-09-11 16:38] LABS: ABSOLUTE BASOPHILS # (AUTO) 0.1 10^3/uL (0.0-0.2); ABSOLUTE EOSINOPHILS # (AUTO) 0.1 10^3/uL (0.0-0.6); ABSOLUTE LYMPHOCYTES (AUTO) 1.4 10^3/uL (0.5-4.7); ABSOLUTE MONOCYTES (AUTO) 0.4 10^3/uL (0.1-1.4); ABSOLUTE NEUT (AUTO) 7.7 10^3/uL (1.7-8.2); BASOPHILS % (AUTO) 0.8 % (0-2); EOSINOPHILS % (AUTO) 1.1 % (0-6); HEMATOCRIT 38.1 % (36.0-47.0); HEMOGLOBIN 12.9 g/dL (12.0-15.5); LYMPHOCYTES % (AUTO) 14.5 % (13-45); MEAN CORPUSCULAR HEMOGLOBIN 27.8 pg (27.0-33.4); MEAN CORPUSCULAR HGB CONC 33.8 g/dL (32.0-36.0); MEAN CORPUSCULAR VOLUME 82 fl (80-97); MONOCYTES % (AUTO) 4.1 % (3-13); PLATELET COUNT 448 10^3/uL (150-450); RED BLOOD COUNT 4.63 10^6/uL (3.72-5.28); RED CELL DISTRIBUTION WIDTH 14.5 % (11.5-14.0); SEGMENTED NEUTROPHILS % (AUTO) 79.5 % (42-78); TOTAL CELLS COUNTED % (AUTO) 100 %; WHITE BLOOD COUNT 9.6 10^3/uL (4.0-10.5)
--- NOTE | 2019-09-11 17:17 | RADIOLOGY REPORT (SQ) ---
EXAM DESCRIPTION: CT ABD/PELVIS WITH IV ONLY IMAGES COMPLETED DATE/TIME: 09/11/2019 4:39 pm REASON FOR STUDY: eval abcess at lower abd surgical site COMPARISON: None. TECHNIQUE: CT scan of the abdomen and pelvis performed using helical scanning technique with dynamic intravenous contrast injection. No oral contrast. Images reviewed with lung, soft tissue, and bone windows. Reconstructed coronal and sagittal MPR images reviewed. Delayed images for evaluation of the urinary system also acquired. All images stored on PACS. All CT scanners at this facility use dose modulation, iterative reconstruction, and/or weight based d osing when appropriate to reduce radiation dose to as low as reasonably achievable (ALARA). [facility]: Dose Right [facility]: CareDose [facility]: Dose Right [facility]: Teradose 4D [facility]: dentaZOOM CONTRAST TYPE AND DOSE: contrast/concentration: Isovue 350.00 mmol/ml; Total Contrast Delivered: 100 .0 ml; Total Saline Delivered: 41.0 ml RENAL FUNCTION: None required. The patient is less than 50 years old. RADIATION DOSE: CT Rad equipment meets quality standard of care and radiation dose reduction techniq ues were employed. CTDIvol: 10.7 - 15.0 mGy. DLP: 1464 mGy-cm.. LIMITATIONS: None. FINDINGS: LOWER CHEST: No significant findings. No nodules or infiltrates. LIVER: Normal size. No masses. No dilated ducts. The hepatic and portal veins are patent. SPLEEN: Normal size. No focal lesions. PANCREAS: No masses. No significant calcifications. No adjacent inflammation or peripancreatic fluid collections. Pancreatic duct not dilated. GALLBLADDER: Prior cholecystectomy. ADRENAL GLANDS: No significant masses or asymmetry. RIGHT KIDNEY AND URETER: No solid masses. No significant calcifications. No hydronephrosis or hyd roureter. LEFT KIDNEY AND URETER: No solid masses. No significant calcifications. No hydronephrosis or hydr oureter. AORTA AND VESSELS: No aneurysm. No dissection. Renal arteries, SMA, celiac without stenosis. RETROPERITONEUM: No retroperitoneal adenopathy, hemorrhage or masses. BOWEL AND PERITONEAL CAVITY: No masses or inflammatory changes. No free fluid or peritoneal masses. APPENDIX: Normal. PELVIS: Small hypoattenuated structures in the bilateral adnexal regions, probably represent ovarian follicles. Small amount of free fluid in the cul-de-sac may be on a physiologic basis. Normal blad jose. ABDOMINAL WALL: A 6.2 cm x 2.3 cm contained fluid collection lies within the anterior lower pelvic c avity and extends into and connects with a linear 6.7 cm fluid collection within the anterior pelvic wall musculature, best seen on Sagittal images 48- 62, series 602. Very small focus of air is identi fied. This collection also lies superior and adjacent to the urinary bladder wall. There is soft ti ssue tethering between the posterior wall of the collection and the anterior wall of the body of the uterus. No free fluid is noted. Considerations for this finding includes possible abscess at the si te of prior surgery. The subcutaneous fat is hazy and linear stranding is identified, these findings may be related to postsurgical changes versus inflammatory changes. BONES: No significant or acute findings. OTHER: Bilateral breast implants. IMPRESSION: 1. At the postoperative surgical site in the anterior lower pelvic region, a slightly i ll-defined fluid collection is identified within the anterior pelvic cavity which appears to connect with a linear fluid collection within the anterior pelvis wall musculature. Very small focus of air is identified. Considerations for this finding includes possible abscess. Correlation suggested. 2. Additional findings as above. TECHNICAL DOCUMENTATION: JOB ID: [id number] Quality ID # [id number]: Final reports with documentation of one or more dose reduction techniques (e.g., Au tomated exposure control, adjustment of the mA and/or kV according to patient size, use of iterative reconstruction technique) 2010 [employer]- All Rights Reserved Reading location - IP/workstation name: [email or web address]
[2019-09-11 17:22] LABS: ANION GAP 9 (5-19); BLOOD UREA NITROGEN 13 mg/dL (7-20); CALCIUM 9.2 mg/dL (8.4-10.2); CARBON DIOXIDE 26 mmol/L (22-30); CHLORIDE 101 mmol/L (98-107); GLUCOSE 94 mg/dL (75-110); POTASSIUM 4.6 mmol/L (3.6-5.0)
[2019-09-11] MEDS ORDERED: HYDROCODONE/ACETAMINOPHEN 5-325 MG TABLET PO ONE (17:47)
[2019-09-11] MEDS ORDERED: CEFTRIAXONE INJ 1000 MG VIAL IM ONE (19:53)
[2019-09-11] MEDS ORDERED: METRONIDAZOLE 500 MG TABLET PO ONE (20:25)
--- NOTE | 2019-09-11 20:26 | ER Document Report ---
ED General - General Chief Complaint: Incision Problem Stated Complaint: SURGICAL SITE CHECK/POSSIBLE INFECTION Time Seen by Provider: 09/11/19 15:23 Primary Care Provider: [facility] [Provider Group] - Follow up tomorrow STEFANY FLYNN MD [Primary Care Provider] - Follow up as needed Notes: Patient is a 33-year-old female who presents to the emergency department with a chief complaint of surgical site pain. She had a reversal of her tubal ligation on September 04 in [place]. Patient states that she had her follow-up appointment with her primary care provider here yesterday. Patient states that this morning she ended up having some bleeding and a small amount of purulent drainage from the site. States that the area is tender. TRAVEL OUTSIDE OF THE [place] IN LAST 30 DAYS: No - Related Data Allergies/Adverse Reactions: amoxicillin trihydrate [From Augmentin] Allergy (Severe, Verified 09/11/19 15:24) itch,swell,vomit potassium clavulanate [From Augmentin] Allergy (Severe, Verified 09/11/19 15:24) itch,swell,vomit Penicillins Allergy (Verified 09/11/19 15:24) cillins Allergy (Uncoded 09/11/19 15:24) hives/rash Past Medical History - Social History Smoking Status: Former Smoker Chew tobacco use (# tins/day): No Frequency of alcohol use: None Drug Abuse: None Family History: Reviewed & Not Pertinent Patient has homicidal ideation: No - Past Medical History Cardiac Medical History: Reports: Hx Hypertension - on occas/no meds Pulmonary Medical History: Reports: Hx Pneumonia Renal/ Medical History: Reports: Hx Ovarian Cysts. Denies: Hx Peritoneal Dialysis Musculoskeletal Medical History: Reports Hx Musculoskeletal Deformity, Reports Hx Musculoskeletal Trauma Psychiatric Medical History: Reports: Hx Anxiety, Hx Attention Deficit Hyperactivity Disorder Traumatic Medical History: Reports: Hx Fractures - Tib-fib, bilateral scaphoid Past Surgical History: Reports: Hx Abdominal Surgery - Tummy tuck, Hx Breast Surgery - Augmentation, Hx Section - x4, Hx Cholecystectomy, Hx Myringotomy, Hx Orthopedic Surgery, Hx Tubal Ligation - Immunizations Immunizations up to date: Yes Hx Diphtheria, Pertussis, Tetanus Vaccination: Yes Review of Systems - Review of Systems Notes: REVIEW OF SYSTEMS: CONSTITUTIONAL : Denies recent illness. Denies recent unintentional weight loss. Denies fever, chills, or sweats. EENT: Denies eye, ear, throat, or mouth pain, discharge, or symptoms. Denies nasal or sinus congestion. CARDIOVASCULAR: Denies chest pain. RESPIRATORY: Denies shortness of breath, cough, congestion, difficulty breathing, or wheezing. GASTROINTESTINAL: See HPI. GENITOURINARY: Denies difficulty urinating, burning, blood in urine, urgency or frequency. MUSCULOSKELETAL: Denies neck and back pain. Denies joint pain or swelling. SKIN: Denies rash, itchiness, or lesions HEMATOLOGIC : Denies easy bruising or bleeding. LYMPHATIC: Denies swollen, painful, enlarged glands. NEUROLOGICAL: Denies no numbness or tingling denies weakness. Denies headache. Denies altered mental status. Denies alteration in speech. PSYCHIATRIC: Denies stress, anxiety, alteration in sleep patterns, or depression. All other systems reviewed and negative. Physical Exam - Vital signs Vitals: Temp Pulse Resp BP Pulse Ox 99.7 F 93 18 156/90 H 99 09/11/19 14:21 09/11/19 14:21 09/11/19 14:21 09/11/19 14:21 09/11/19 14:21 - Notes Notes: PHYSICAL EXAMINATION: GENERAL: Appears well, healthy, well-nourished, no acute distress. HEAD: Normocephalic, atraumatic. EYES: PERRL, conjunctiva normal, all extraocular movements intact, sclera nonicteric ENT: Moist mucous membranes. NECK: Supple, no noticeable swelling, redness, rash. Normal range of motion. LUNGS: Equal breath sounds bilaterally and clear to auscultation. No wheezes rales or rhonchi. CARDIOVASCULAR: S1-S2, regular rate, regular rhythm. Radial pulses 2+, normal. ABDOMEN: Normoactive bowel sounds. Soft, mildly tender incision site, no guarding, no rebound tenderness, and no masses palpated. EXTREMITIES: Normal strength and range of motion, no pitting or edema. No cyanosis. NEUROLOGICAL: Moves all extremities upon command. Strength 5/5 in all extremities. PSYCH: Normal mood, normal affect. SKIN: Warm, tenderness noted to the right of her incision site. Using slight purulent drainage. Course - Re-evaluation Re-evalutation: 09/11/19 19:[address] Romero, the [employer] on-call. Discussed the findings with Dr. Romero. Discussed that there could possibly be an abscess underneath the incision. Patient states that the area is draining. Dr. Romero would like her to be placed on Flagyl and given a dose of Rocephin. Since the patient is allergic to penicillins and her reaction is swelling to her face, will place her on doxycycline and Flagyl. Patient then told me that she finished a course of clindamycin. She did not discuss this when I initially saw her in triage. Dr. Romero would like her to follow-up first thing in the morning at the office tomorrow. Discussed this with the patient. She is in agreement with this plan. Follow-up precautions were given. Verbal discharge instructions were given to the patient. They verbalized understanding. They are stable for discharge. - Vital Signs Vital signs: Temp Pulse Resp BP Pulse Ox 99.1 F 72 18 137/90 H 99 09/11/19 20:50 09/11/19 20:50 09/11/19 20:50 09/11/19 20:50 09/11/19 20:50 - Laboratory Result Diagrams: 09/11/19 16:18 09/11/19 16:54 Laboratory results interpreted by me: 09/11/19 09/11/19 16:18 16:54 RDW 14.5 H Seg Neutrophils % 79.5 H Sodium 135.5 L Discharge - Discharge Clinical Impression: Incisional pain Condition: Stable Disposition: HOME, SELF-CARE Additional Instructions: You were seen today in the emergency department for incision pain. You are being started on Flagyl. You are also being placed on doxycycline. Please follow-up with [employer] tomorrow. Call them at 8:00 in the morning getting appointment for tomorrow. Let them know that you were seen here in the emergency department. Prescriptions: Metronidazole [Flagyl 500 mg Tablet] 500 mg PO Q6H #28 tablet Doxycycline Hyclate [Vibramycin 100 mg Tablet] 100 mg PO BID #14 tablet Referrals: STEFANY FLYNN MD [Primary Care Provider] - Follow up as needed [facility] [Provider Group] - Follow up tomorrow
[2019-09-11 20:50] VITALS: BP 137/90
== END 2019-09-11 20:50 | disposition home or self-care (01) ==
LOC: ER 14:15
DX: G89.18 Other acute postprocedural pain (principal); Z98.890 Other specified postprocedural states; Z88.0 Allergy status to penicillin; Z88.8 Allergy status to other drugs, medicaments and biological substances; Z87.891 Personal history of nicotine dependence; I10 Essential (primary) hypertension
CPT/HCPCS: 99284; 96360; 96361; 36415; 85025; 80048; 74177; J3490; J7030